=== PATIENT | female | born 1950 | race Two or more races ===

== ENCOUNTER 2017-10-27 11:42 | Emergency (ER) | payer OTHER, MEDICAID ==
[~2017-10-27] VITALS: Ht 149.9 cm; Wt 63.5 kg
[2017-10-27 19:43] VITALS: BP 181/56
[2017-10-27] MEDS ORDERED: TETANUS-DIPTH-ACEL PERTUSSIS 0.5ML SYRG IM ONE (20:00)
== END 2017-10-27 21:02 | disposition home or self-care (01) ==
LOC: ER 11:42
DX: S80.812A Abrasion, left lower leg, initial encounter (principal); L03.116 Cellulitis of left lower limb; W19.XXXA Unspecified fall, initial encounter; Y93.89 Activity, other specified; Y99.8 Other external cause status; Y92.89 Other specified places as the place of occurrence of the external cause
CPT/HCPCS: 90471; 90715

== ENCOUNTER 2022-02-13 05:31 | Emergency (ER) | payer MEDICAID, OTHER ==
[~2022-02-13] VITALS: Ht 152.4 cm; Wt 63.5 kg
[2022-02-13] MEDS ORDERED: ACCU-CHEK COMFORT CURVE STRIP VI ONE (05:45)
[2022-02-13 06:07] LABS: Basophils # (auto) 0 10 ^3/uL (0-0.2); Eosinophils # (auto) 0 10 ^3/uL (0-0.8); Lymphocytes # (auto) 0.9 10 ^3/uL (0.4-5.4); Monocytes # (auto) 0.6 10 ^3/uL (0-1.3); Neutrophils # (auto) 10.1 10 ^3/uL (1.6-8.6); Nucleated Red Blood Cells % 0.1 %; White Blood Cell 11.6 10^3/uL (4.4-10.8)
[2022-02-13 06:12] LABS: Basophils % (auto) 0.2 % (0.0-2.0); Eosinophils % (auto) 0.3 % (0.0-7.0); Hematocrit 31.3 % (36.0-46.0); Hemoglobin 10.6 g/dL (12.2-16.2); Lymphocytes % (auto) 7.4 % (10.0-50.0); Mean Corpuscular Hemoglobin 27.5 pg (28.0-32.0); Mean Corpuscular Hgb Conc. 33.9 g/dL (32.0-36.0); Mean Corpuscular Volume 81.2 fL (80.0-100.0); Monocytes % (auto) 4.8 % (0.0-12.0); Neutrophils % (auto) 87.3 % (37.0-80.0); Red Blood Cells 3.85 10^6/uL (4.0-5.20); Red Cell Distribution Width 13.7 % (11.8-14.3)
[2022-02-13 06:25] LABS: Albumin 2.7 g/dL (3.4-5.0); BUN/Creatinine Ratio 15.2; Calcium 8.3 mg/dL (8.5-10.1); Potassium 4.6 mmol/L (3.5-5.1)
[2022-02-13 06:27] LABS: Bilirubin, Total 0.5 mg/dL (0.2-1.0); Total Protein 6.5 g/dL (6.4-8.2)
[2022-02-13] MEDS ORDERED: InsuLIN REG 1unit/0.01ml Soln (100units/ml) IV ONE ×2 (07:00→09:45)
[2022-02-13] MEDS ORDERED: cefTRIAXone 1GM/50ML D5W 50 ML IV ONE ×2 (07:00→08:45)
[2022-02-13 08:38] LABS: Urine Bacteria FEW /hpf (None Seen); Urine Blood 1+ /uL (Negative); Urine Specific Gravity 1.021 (1.001-1.035); Urine WBC 88 /hpf (0 - 5)
[2022-02-13 09:32] LABS: Alcohol, Urine < 3.0 mg/dL (0-10); Amphetamine Screen, Urine NEGATIVE (NEGATIVE); Barbiturate Scree,Urine NEGATIVE (NEGATIVE); Benzodiazephine Screen, Urine NEGATIVE (NEGATIVE); Cannabinoid Screen, Urine NEGATIVE (NEGATIVE); Cocaine Screen, Urine NEGATIVE (NEGATIVE); Opiate Scree,Urine NEGATIVE (NEGATIVE); Phencyclidine Screen, Urine NEGATIVE (NEGATIVE)
[2022-02-13] MEDS ORDERED: CEPH-509 PO (09:43)
[2022-02-13] MEDS ORDERED: hydrALAZINE HCL 20 MG/ML VL IV ONE (09:45)
[2022-02-13 11:13] VITALS: BP 176/76
== END 2022-02-13 11:55 | disposition home or self-care (01) ==
LOC: ER 05:31
DX: N39.0 Urinary tract infection, site not specified (principal); I10 Essential (primary) hypertension; E11.65 Type 2 diabetes mellitus with hyperglycemia; Z20.822 Contact with and (suspected) exposure to COVID-19
CPT/HCPCS: 36415; 71045; 80053; 80307; 81001; 82962; 83605; 83880; 84484; 85025; 87040; 87426; 87804; 96365; 96375; 99285; J0360; J0696; J1815; 87077; 87186; 93005

== ENCOUNTER 2022-03-15 14:26 | Emergency (ER) | payer OTHER, MEDICAID ==
[~2022-03-15] VITALS: Ht 149.9 cm; Wt 58.5 kg
[~2022-03-15 14:26] MED LIST: CEPH-509 PO
[2022-03-15] MEDS ORDERED: ACETAMINOPHEN 325 MG TAB PO ONE (14:45)
[2022-03-15 15:43] LABS: Basophils # (auto) 0.1 10 ^3/uL (0-0.2); Basophils % (auto) 0.5 % (0.0-2.0); Eosinophils # (auto) 0 10 ^3/uL (0-0.8); Hematocrit 31.6 % (36.0-46.0); Hemoglobin 10.4 g/dL (12.2-16.2); Lymphocytes # (auto) 1.9 10 ^3/uL (0.4-5.4); Lymphocytes % (auto) 9.7 % (10.0-50.0); Mean Corpuscular Hemoglobin 26.4 pg (28.0-32.0); Mean Corpuscular Hgb Conc. 32.9 g/dL (32.0-36.0); Mean Corpuscular Volume 80.1 fL (80.0-100.0); Monocytes # (auto) 1.1 10 ^3/uL (0-1.3); Monocytes % (auto) 5.4 % (0.0-12.0); Neutrophils # (auto) 16.7 10 ^3/uL (1.6-8.6); Neutrophils % (auto) 84.4 % (37.0-80.0); Red Blood Cells 3.94 10^6/uL (4.0-5.20); Red Cell Distribution Width 15.5 % (11.8-14.3); White Blood Cell 19.8 10^3/uL (4.4-10.8)
[2022-03-15 16:07] LABS: Albumin 2.7 g/dL (3.4-5.0); BUN/Creatinine Ratio 14.6; Calcium 8.4 mg/dL (8.5-10.1); Potassium 4.6 mmol/L (3.5-5.1)
[2022-03-15 16:10] LABS: Bilirubin, Total 0.6 mg/dL (0.2-1.0); Total Protein 7.8 g/dL (6.4-8.2)
[2022-03-15] MEDS ORDERED: SODIUM CHLORIDE 0.9% 500 ML IV ONE (20:30)
[2022-03-15] MEDS ORDERED: PIPERACILLIN-TAZOB 3.375GM 100 ML IV ONE (20:30)
[2022-03-15] MEDS ORDERED: VANCOMYCIN 1GM/250ML 250 ML IV ONE (20:30)
[2022-03-15 23:52] LABS: Urine Bacteria NONE SEEN /hpf (None Seen); Urine Blood TRACE /uL (Negative); Urine Mucus FEW (None Seen); Urine Specific Gravity 1.027 (1.001-1.035); Urine WBC 47 /hpf (0 - 5); Urine WBC Clumps PRESENT /hpf (None Seen)
[2022-03-16 00:05] LABS: Lactic Acid w/Reflex 3.4 mmol/L (0.4-2.0)
[2022-03-16] MEDS ORDERED: levoFLOXacin 250 MG TAB PO ONE (06:15)
[2022-03-16 06:35] VITALS: BP 133/73
== END 2022-03-16 06:55 | disposition home or self-care (01) ==
LOC: ER 14:26
DX: A41.9 Sepsis, unspecified organism (principal); R91.8 Other nonspecific abnormal finding of lung field; E11.9 Type 2 diabetes mellitus without complications; I10 Essential (primary) hypertension; Z20.822 Contact with and (suspected) exposure to COVID-19
CPT/HCPCS: 36415; 71045; 71250; 74176; 80053; 81001; 82962; 83605; 84484; 85025; 87040; 87077; 87186; 87426; 93005; 96361; 96365; 96368; 99291; J2543; J3370; J7040

== ENCOUNTER 2022-04-24 07:29 | Inpatient (IN) | payer OTHER, MEDICAID ==
[~2022-04-24] VITALS: Ht 144.8 cm; Wt 57.9 kg
[2022-04-24] MEDS ORDERED: FUROSEMIDE 40 MG/4 ML VIAL IV ONE (08:00)
[2022-04-24] MEDS ORDERED: NITROGLYCERIN 0.4 MG SL TAB SL ONE ×2 (08:00→08:15)
[2022-04-24 08:06] VITALS: BP 243/113
[2022-04-24 08:15] LABS: Eosinophils # (auto) 0.2 10 ^3/uL (0-0.8); Hematocrit 33.4 % (36.0-46.0); Mean Corpuscular Volume 79.2 fL (80.0-100.0); Monocytes # (auto) 0.8 10 ^3/uL (0-1.3); Red Blood Cells 4.22 10^6/uL (4.0-5.20)
[2022-04-24 08:20] LABS: Basophils # (auto) 0.2 10 ^3/uL (0-0.2); Basophils % (auto) 0.9 % (0.0-2.0); Lymphocytes % (auto) 17.6 % (10.0-50.0); Mean Corpuscular Hemoglobin 26.1 pg (28.0-32.0); Mean Corpuscular Hgb Conc. 32.9 g/dL (32.0-36.0); Monocytes % (auto) 4.4 % (0.0-12.0); Neutrophils # (auto) 13.1 10 ^3/uL (1.6-8.6); Neutrophils % (auto) 76.1 % (37.0-80.0); Red Cell Distribution Width 16.7 % (11.8-14.3); White Blood Cell 17.2 10^3/uL (4.4-10.8)
[2022-04-24 08:35] LABS: Albumin 3.1 g/dL (3.4-5.0); Calcium 8.6 mg/dL (8.5-10.1); Magnesium 2.2 mg/dL (1.6-2.6); Potassium 4.7 mmol/L (3.5-5.1)
[2022-04-24 08:44] LABS: BUN/Creatinine Ratio 31.3; Bilirubin, Total 0.3 mg/dL (0.2-1.0); CRP High Sensitivity 7.09 mg/dL (< 0.3); Total Protein 8.6 g/dL (6.4-8.2)
[2022-04-24 08:59] LABS: Urine Bacteria FEW /hpf (None Seen); Urine Blood TRACE /uL (Negative); Urine Hyaline Cast FEW /lpf (0 - 2); Urine Mucus FEW (None Seen); Urine Specific Gravity 1.011 (1.001-1.035); Urine WBC 29 /hpf (0 - 5)
[2022-04-24] MEDS ORDERED: cefTRIAXone 1GM/50ML D5W 50 ML IV ONE (09:15)
[2022-04-24 10:06] VITALS: BP 168/62
[2022-04-24 10:42] LABS: INR 1.08 (0.9-1.15); Partial Thromboplastin Time 35.3 sec (23.6-33.0)
[2022-04-24] MEDS ORDERED: NITROGLYCERIN 0.4 MG SL TAB SL PRN (11:00)
[2022-04-24] MEDS ORDERED: MORPHINE SULFATE INJ 2 MG/ml SYRG IV PRN (11:00)
[2022-04-24] MEDS ORDERED: guaiFENesin-DM 100/10mg/5ml SYR PO PRN (11:00)
[2022-04-24] MEDS ORDERED: LISI20TA28 PO (11:07)
[2022-04-24] MEDS ORDERED: DEXTROSE (50%) 50ML SYRG IV PRN (11:15)
[2022-04-24] MEDS ORDERED: hydrALAZINE HCL 20 MG/ML VL IV PRN (11:15)
[2022-04-24] MEDS: ACCU-CHEK COMFORT CURVE STRIP VI SCH ×3 (11:18→23:05)
[2022-04-24] MEDS: InsuLIN REG 1unit/0.01ml Soln (100units/ml) SC SCH ×3 (11:18→23:05)
[2022-04-24 13:43] VITALS: BP 168/71
[2022-04-24] MEDS: ALBUTEROL SULF 2.5 MG/0.5ML(0.5%) NEB SOLN NEB SCH ×4 (13:51→23:11)
[2022-04-24] MEDS: IPRATROPIUM BROM 0.5 MG/2.5ML INH SOL NEB PRN ×3 (13:55→23:11)
[2022-04-25] MEDS ORDERED: CHOL100055 PO (01:19)
[2022-04-25] MEDS ORDERED: METF-372 PO (01:19)
[2022-04-25] MEDS ORDERED: INSU1INJ19 SC (01:19)
[2022-04-25] MEDS: ALBUTEROL SULF 2.5 MG/0.5ML(0.5%) NEB SOLN NEB SCH ×6 (02:28→22:49)
[2022-04-25] MEDS: IPRATROPIUM BROM 0.5 MG/2.5ML INH SOL NEB PRN ×6 (02:28→22:49)
[2022-04-25 05:00] VITALS: BP 122/50
[2022-04-25 05:59] LABS: Basophils # (auto) 0.1 10 ^3/uL (0-0.2); Basophils % (auto) 0.4 % (0.0-2.0); Eosinophils # (auto) 0 10 ^3/uL (0-0.8); Eosinophils % (auto) 0.2 % (0.0-7.0); Hemoglobin 9.3 g/dL (12.2-16.2); Lymphocytes # (auto) 2.5 10 ^3/uL (0.4-5.4); Monocytes # (auto) 0.8 10 ^3/uL (0-1.3); White Blood Cell 13.3 10^3/uL (4.4-10.8)
[2022-04-25 06:01] LABS: Hematocrit 27.9 % (36.0-46.0); Mean Corpuscular Hemoglobin 25.8 pg (28.0-32.0); Mean Corpuscular Hgb Conc. 33.4 g/dL (32.0-36.0); Mean Corpuscular Volume 77.2 fL (80.0-100.0); Monocytes % (auto) 5.6 % (0.0-12.0); Neutrophils % (auto) 74.8 % (37.0-80.0); Red Blood Cells 3.62 10^6/uL (4.0-5.20); Red Cell Distribution Width 16.4 % (11.8-14.3)
[2022-04-25] MEDS: InsuLIN REG 1unit/0.01ml Soln (100units/ml) SC SCH ×4 (06:02→21:50)
[2022-04-25] MEDS: ACCU-CHEK COMFORT CURVE STRIP VI SCH ×4 (06:02→21:48)
[2022-04-25 06:19] LABS: Albumin 2.6 g/dL (3.4-5.0); Calcium 8.2 mg/dL (8.5-10.1)
[2022-04-25 06:23] LABS: BUN/Creatinine Ratio 29.6; Bilirubin, Total 0.4 mg/dL (0.2-1.0); Total Protein 7.1 g/dL (6.4-8.2)
[2022-04-25] MEDS: cefTRIAXone 1GM/50ML D5W 50 ML IV SCH (08:08)
[2022-04-25 08:10] VITALS: BP 133/52
[2022-04-25 09:00] VITALS: BP 133/52
[2022-04-25] MEDS: AZITHROMYCIN 500MG/ 250ML 250 ML IV SCH (09:56)
[2022-04-25] MEDS: ASPirin 81 mg TAB PO SCH (09:56)
[2022-04-25] MEDS: ENOXAPARIN SOD 40 MG/0.4 ML SYRINGE SC SCH (09:56)
[2022-04-25 13:00] VITALS: BP 120/51
[2022-04-25 17:00] VITALS: BP 137/45
[2022-04-25 22:00] VITALS: BP 100/75
[2022-04-25] MEDS ORDERED: ATORVASTATIN 20 MG TAB PO SCH (22:00)
[2022-04-26] MEDS: ALBUTEROL SULF 2.5 MG/0.5ML(0.5%) NEB SOLN NEB SCH ×4 (02:55→13:54)
[2022-04-26] MEDS: IPRATROPIUM BROM 0.5 MG/2.5ML INH SOL NEB PRN ×4 (02:55→13:54)
[2022-04-26 05:00] VITALS: BP 100/55
[2022-04-26 05:39] LABS: Basophils # (auto) 0 10 ^3/uL (0-0.2); Basophils % (auto) 0.4 % (0.0-2.0); Eosinophils # (auto) 0.1 10 ^3/uL (0-0.8); Eosinophils % (auto) 1.5 % (0.0-7.0); Hematocrit 26.2 % (36.0-46.0); Hemoglobin 8.9 g/dL (12.2-16.2); Lymphocytes # (auto) 2.6 10 ^3/uL (0.4-5.4); Lymphocytes % (auto) 29.8 % (10.0-50.0); Mean Corpuscular Hemoglobin 26.7 pg (28.0-32.0); Mean Corpuscular Hgb Conc. 34.1 g/dL (32.0-36.0); Mean Corpuscular Volume 78.3 fL (80.0-100.0); Monocytes # (auto) 0.7 10 ^3/uL (0-1.3); Monocytes % (auto) 8.3 % (0.0-12.0); Neutrophils # (auto) 5.2 10 ^3/uL (1.6-8.6); Nucleated Red Blood Cells % 0.1 %; Red Blood Cells 3.34 10^6/uL (4.0-5.20); Red Cell Distribution Width 16.2 % (11.8-14.3); White Blood Cell 8.7 10^3/uL (4.4-10.8)
[2022-04-26 06:01] LABS: Albumin 2.4 g/dL (3.4-5.0); Calcium 8.1 mg/dL (8.5-10.1); Potassium 4.4 mmol/L (3.5-5.1)
[2022-04-26 06:07] LABS: BUN/Creatinine Ratio 28.1; Bilirubin, Total 0.3 mg/dL (0.2-1.0); Total Protein 6.9 g/dL (6.4-8.2)
[2022-04-26] MEDS ORDERED: LEVO500T31 PO (06:32)
[2022-04-26] MEDS: InsuLIN REG 1unit/0.01ml Soln (100units/ml) SC SCH ×3 (07:00→17:00)
[2022-04-26] MEDS: ACCU-CHEK COMFORT CURVE STRIP VI SCH ×3 (07:00→16:52)
[2022-04-26] MEDS ORDERED: ADENOSINE 49 MG in GIVE UN-DILUTED 0 ML IV ONE (07:45)
[2022-04-26] MEDS: cefTRIAXone 1GM/50ML D5W 50 ML IV SCH (08:22)
[2022-04-26 08:25] VITALS: BP 155/60
[2022-04-26 09:00] VITALS: BP 155/60
[2022-04-26] MEDS: ENOXAPARIN SOD 40 MG/0.4 ML SYRINGE SC SCH (10:23)
[2022-04-26] MEDS: ASPirin 81 mg TAB PO SCH (10:23)
[2022-04-26] MEDS: AZITHROMYCIN 500MG/ 250ML 250 ML IV SCH (10:24)
[2022-04-26 10:46] VITALS: BP 155/60
[2022-04-26 11:44] VITALS: BP 127/50
[2022-04-26] MEDS ORDERED: FURO20TA3 PO (14:31)
[2022-04-26] MEDS ORDERED: MET25T PO (14:31)
[2022-04-26] MEDS ORDERED: FUROSEMIDE 20 MG/2 ML VIAL IV SCH (18:00)
[2022-04-26] MEDS ORDERED: METOPROLOL TARTRATE 25 MG TAB PO SCH (22:00)
[2022-04-27] MEDS ORDERED: AZITHROMYCIN 250 MG TAB PO SCH (10:00)
== END 2022-04-26 17:15 | disposition home health service (06) | DRG 189 ==
LOC: ER 07:29 → TELE 10:53 → TELE-EAST 22:50 → OBSVTOIN 04-26 10:55
PROVIDERS: ADMIT Hospitalist; ATTEND Hospitalist
PROC: 5A09357 Assistance with Respiratory Ventilation, Less than 24 Consecutive Hours, Continuous Positive Airway Pressure (ICD-10-PCS; principal; 2022-04-24)
DX: J96.01 Acute respiratory failure with hypoxia (principal); J18.9 Pneumonia, unspecified organism; I50.43 Acute on chronic combined systolic (congestive) and diastolic (congestive) heart failure; N39.0 Urinary tract infection, site not specified; J98.11 Atelectasis; I11.0 Hypertensive heart disease with heart failure; Z20.822 Contact with and (suspected) exposure to COVID-19; E11.9 Type 2 diabetes mellitus without complications; Z82.49 Family history of ischemic heart disease and other diseases of the circulatory system; Z83.3 Family history of diabetes mellitus; D72.829 Elevated white blood cell count, unspecified; I16.0 Hypertensive urgency; D64.9 Anemia, unspecified; Z79.4 Long term (current) use of insulin
CPT/HCPCS: 36415; 36600; 71045; 78452; 80053; 81001; 82728; 82805; 82962; 83605; 83735; 83880; 84484; 85025; 85379; 85610; 85730; 86141; 87040; 87278; 93005; 93017; 93306; 93886; 94640; 94660; 96365; 96375; 97116; 97163; 97530; 99291; G0378; J0153; J0696; J1815

== ENCOUNTER 2023-01-11 12:52 | Emergency (ER) | payer OTHER ==
[~2023-01-11] VITALS: Ht 152.4 cm; Wt 60.0 kg
[~2023-01-11 12:52] MED LIST changes: +CHOL100055 PO; +FURO1TAB31 PO; +FURO20TA3 PO; +INSU1INJ19 SC; +LEVO500T31 PO; +LISI20TA28 PO; +MET25T PO; +METF-372 PO
[2023-01-11 13:55] VITALS: BP 159/79
[2023-01-11 15:08] LABS: Urine Bacteria NONE SEEN /hpf (None Seen); Urine Blood TRACE /uL (Negative); Urine Specific Gravity 1.016 (1.001-1.035); Urine WBC 35 /hpf (0 - 5)
[2023-01-11 15:20] LABS: Basophils # (auto) 0.1 10 ^3/uL (0-0.2); Eosinophils # (auto) 0.1 10 ^3/uL (0-0.8); Hemoglobin 11.5 g/dL (12.2-16.2); Lymphocytes # (auto) 0.9 10 ^3/uL (0.4-5.4); Monocytes # (auto) 0.5 10 ^3/uL (0-1.3); Nucleated Red Blood Cells % 0.1 %
[2023-01-11 15:22] LABS: Basophils % (auto) 0.9 % (0.0-2.0); Eosinophils % (auto) 1.9 % (0.0-7.0); Hematocrit 35.6 % (36.0-46.0); Lymphocytes % (auto) 13.5 % (10.0-50.0); Mean Corpuscular Hemoglobin 25.3 pg (28.0-32.0); Mean Corpuscular Hgb Conc. 32.4 g/dL (32.0-36.0); Mean Corpuscular Volume 78.1 fL (80.0-100.0); Monocytes % (auto) 7.6 % (0.0-12.0); Neutrophils % (auto) 76.1 % (37.0-80.0); Red Blood Cells 4.55 10^6/uL (4.0-5.20); Red Cell Distribution Width 17.4 % (11.8-14.3); White Blood Cell 6.6 10^3/uL (4.4-10.8)
[2023-01-11 15:50] LABS: Albumin 3.3 g/dL (3.4-5.0); BUN/Creatinine Ratio 21.9 (10.0-20.0); Calcium 8.7 mg/dL (8.5-10.1); Potassium 4.4 mmol/L (3.5-5.1)
[2023-01-11 15:53] LABS: Bilirubin, Total 0.8 mg/dL (0.2-1.0); Total Protein 7.4 g/dL (6.4-8.2)
[2023-01-11] MEDS ORDERED: APIX5TAB PO (18:53)
== END 2023-01-11 20:31 | disposition home or self-care (01) ==
LOC: ER 12:52
DX: R60.0 Localized edema (principal); I82.90 Acute embolism and thrombosis of unspecified vein; E11.9 Type 2 diabetes mellitus without complications; I10 Essential (primary) hypertension
CPT/HCPCS: 36415; 80053; 81001; 85025

== ENCOUNTER 2023-02-04 14:31 | Inpatient (IN) | payer OTHER ==
[~2023-02-04] VITALS: Ht 149.9 cm; Wt 62.3 kg
[~2023-02-04 14:31] MED LIST changes: +APIX5TAB PO
[2023-02-04 15:28] LABS: Basophils # (auto) 0.1 10 ^3/uL (0-0.2); Eosinophils # (auto) 0.1 10 ^3/uL (0-0.8); Hemoglobin 12.3 g/dL (12.2-16.2); Lymphocytes # (auto) 0.6 10 ^3/uL (0.4-5.4); Monocytes # (auto) 0.1 10 ^3/uL (0-1.3); Neutrophils # (auto) 8.3 10 ^3/uL (1.6-8.6); Red Blood Cells 4.81 10^6/uL (4.0-5.20)
[2023-02-04 15:30] LABS: Eosinophils % (auto) 0.8 % (0.0-7.0); Hematocrit 38.2 % (36.0-46.0); Lymphocytes % (auto) 6.4 % (10.0-50.0); Mean Corpuscular Hemoglobin 25.5 pg (28.0-32.0); Mean Corpuscular Hgb Conc. 32.1 g/dL (32.0-36.0); Mean Corpuscular Volume 79.3 fL (80.0-100.0); Monocytes % (auto) 1.1 % (0.0-12.0); Neutrophils % (auto) 90.7 % (37.0-80.0); Nucleated Red Blood Cells % 0.1 %; Red Cell Distribution Width 17.3 % (11.8-14.3); White Blood Cell 9.2 10^3/uL (4.4-10.8)
[2023-02-04 15:53] LABS: Albumin 3.2 g/dL (3.4-5.0); BUN/Creatinine Ratio 22.5 (10.0-20.0); Calcium 8.4 mg/dL (8.5-10.1); Potassium 4.3 mmol/L (3.5-5.1)
[2023-02-04 15:56] LABS: Total Protein 6.9 g/dL (6.4-8.2)
[2023-02-04] MEDS ORDERED: FUROSEMIDE 40 MG/4 ML VIAL IV ONE (16:45)
[2023-02-04] MEDS ORDERED: ENOXAPARIN SOD 60 MG/0.6 ML SYRINGE SC ONE (16:45)
[2023-02-04] MEDS ORDERED: MORPHINE SULFATE INJ 2 MG/ml SYRG IV ONE (17:45)
[2023-02-04] MEDS ORDERED: ONDANSETRON HCL 4 MG/2 ML VIAL IV ONE (17:45)
[2023-02-04] MEDS ORDERED: IOHEXOL 350 MG/ML 100ML IJ ONE (18:15)
[2023-02-04] MEDS ORDERED: LORazepam 0.5 MG TAB PO ONE (19:45)
[2023-02-04 19:50] LABS: Urine Bacteria NONE SEEN /hpf (None Seen); Urine Blood TRACE /uL (Negative); Urine Hyaline Cast FEW /lpf (0 - 2); Urine Mucus FEW (None Seen); Urine Specific Gravity 1.017 (1.001-1.035); Urine WBC 7 /hpf (0 - 5)
[2023-02-04] MEDS ORDERED: MORPHINE SULFATE INJ 2 MG/ml SYRG IV PRN ×2 (20:30→22:00)
[2023-02-04] MEDS ORDERED: NITROGLYCERIN 0.4 MG SL TAB SL PRN (20:30)
[2023-02-04 20:34] VITALS: BP 148/90
[2023-02-04] MEDS ORDERED: DEXTROSE (50%) 50ML SYRG IV PRN (22:30)
[2023-02-04] MEDS: ASPirin-EC 325mg tab PO SCH (22:44)
[2023-02-04] MEDS: FUROSEMIDE 40 MG/4 ML VIAL IV SCH (22:44)
[2023-02-05] VITALS (26 sets, daily range): BP systolic 92–140; BP diastolic 23–64
[2023-02-05] MEDS: IPRATROPIUM BROM 0.5 MG/2.5ML INH SOL NEB SCH ×4 (00:38→19:32)
[2023-02-05] MEDS: ALBUTEROL SULF 2.5 MG/0.5ML(0.5%) NEB SOLN NEB SCH ×4 (00:38→19:32)
[2023-02-05] MEDS ORDERED: methylPREDNISolone SOD SUCC 125 MG/2 ML VL IV ONE (04:15)
[2023-02-05] MEDS: NOREPINEPHRINE 8 MG/250ML KIT 250 ML IV SCH ×2 (04:50→22:49)
[2023-02-05 05:58] LABS: Basophils # (auto) 0 10 ^3/uL (0-0.2); Basophils % (auto) 0.2 % (0.0-2.0); Eosinophils # (auto) 0 10 ^3/uL (0-0.8); Eosinophils % (auto) 0.1 % (0.0-7.0); Hematocrit 33.9 % (36.0-46.0); Lymphocytes # (auto) 0.4 10 ^3/uL (0.4-5.4); Lymphocytes % (auto) 2.7 % (10.0-50.0); Mean Corpuscular Hemoglobin 25.9 pg (28.0-32.0); Mean Corpuscular Hgb Conc. 32.6 g/dL (32.0-36.0); Mean Corpuscular Volume 79.4 fL (80.0-100.0); Monocytes # (auto) 0.2 10 ^3/uL (0-1.3); Monocytes % (auto) 1.6 % (0.0-12.0); Neutrophils # (auto) 14.2 10 ^3/uL (1.6-8.6); Neutrophils % (auto) 95.4 % (37.0-80.0); Red Blood Cells 4.26 10^6/uL (4.0-5.20); Red Cell Distribution Width 17.7 % (11.8-14.3); White Blood Cell 14.9 10^3/uL (4.4-10.8)
[2023-02-05 06:08] LABS: INR 1.62 (0.9-1.15)
[2023-02-05 06:20] LABS: Albumin 2.6 g/dL (3.4-5.0); Calcium 8.1 mg/dL (8.5-10.1)
[2023-02-05 06:45] LABS: Bilirubin, Total 1.5 mg/dL (0.2-1.0); Total Protein 6.1 g/dL (6.4-8.2)
[2023-02-05] MEDS: FUROSEMIDE 40 MG/4 ML VIAL IV SCH ×3 (06:50→22:50)
[2023-02-05] MEDS: ASPirin-EC 325mg tab PO SCH ×3 (06:50→22:00)
[2023-02-05] MEDS: ACCU-CHEK COMFORT CURVE STRIP VI SCH ×4 (07:00→23:14)
[2023-02-05] MEDS: InsuLIN REG 1unit/0.01ml Soln (100units/ml) SC SCH ×4 (07:00→22:00)
[2023-02-05] MEDS: ALBUMIN 25% 100 ML IV SCH ×3 (08:57→22:56)
[2023-02-05] MEDS: LORazepam 0.5 MG TAB PO PRN (15:43)
[2023-02-05] MEDS ORDERED: ETOMIDATE (2MG/ML) 20ML VIAL IV ONE (16:30)
[2023-02-05] MEDS ORDERED: SUCCINYLCHOLINE CHLORIDE 20 MG/ML 10ML VIAL IV ONE ×2 (16:30→16:36)
[2023-02-05] MEDS ORDERED: MIDAZOLAM DRIP 50 mg/50mL 50 ML IV ONE (16:36)
[2023-02-05] MEDS: MIDAZOLAM DRIP 50 mg/50mL 50 ML IV SCH ×2 (17:18→22:21)
[2023-02-05] MEDS ORDERED: fentaNYL Drip 2500mCg/250mlNS 250 ML IV ONE (18:36)
[2023-02-05] MEDS: fentaNYL Drip 2500mCg/250mlNS 250 ML IV SCH (18:45)
[2023-02-05] MEDS ORDERED: PROPOFOL 100 ML IV ONE (18:55)
[2023-02-05] MEDS: PROPOFOL 100 ML IV SCH ×2 (18:55→22:50)
[2023-02-05] MEDS ORDERED: PHENYLEPHRINE IV 250 ML IV ONE (18:58)
[2023-02-05] MEDS ORDERED: NOREPINEPHRINE 8 MG/250ML KIT 250 ML IV ONE (18:58)
[2023-02-05] MEDS ORDERED: ROCURONIUM 10MG/ML 10ML VIAL IV ONE ×2 (18:59→19:00)
[2023-02-05] MEDS: PHENYLEPHRINE IV 250 ML IV SCH (19:15)
[2023-02-05] MEDS ORDERED: SODIUM BICARBONATE 8.4 % INJ 50ML VIAL IV ONE ×2 (19:55→20:00)
[2023-02-06] VITALS (104 sets, daily range): BP systolic 65–160; BP diastolic 28–74
[2023-02-06] MEDS: ALBUTEROL SULF 2.5 MG/0.5ML(0.5%) NEB SOLN NEB SCH ×4 (00:22→18:13)
[2023-02-06] MEDS: IPRATROPIUM BROM 0.5 MG/2.5ML INH SOL NEB SCH ×4 (00:22→18:13)
[2023-02-06] MEDS: MIDAZOLAM DRIP 50 mg/50mL 50 ML IV SCH ×6 (02:19→23:43)
[2023-02-06 02:56] LABS: Hematocrit 35.6 % (36.0-46.0); Hemoglobin 11.5 g/dL (12.2-16.2); Mean Corpuscular Hemoglobin 25.5 pg (28.0-32.0); Mean Corpuscular Hgb Conc. 32.2 g/dL (32.0-36.0); Mean Corpuscular Volume 79.3 fL (80.0-100.0); Red Blood Cells 4.49 10^6/uL (4.0-5.20); Red Cell Distribution Width 18.2 % (11.8-14.3)
[2023-02-06 03:15] LABS: BUN/Creatinine Ratio 16.5 (10.0-20.0); Calcium 7.6 mg/dL (8.5-10.1); Potassium 4.5 mmol/L (3.5-5.1)
[2023-02-06 03:16] LABS: Basophils % (manual) 0 (0.0-2.0); Blast Cells 0; Eosinophils % (manual) 0 (0-7); Promyelocytes % 0; Reactive Lymphocytes 0
[2023-02-06] MEDS: PHENYLEPHRINE IV 250 ML IV SCH ×3 (03:35→20:15)
[2023-02-06] MEDS: PROPOFOL 100 ML IV SCH ×4 (04:11→22:33)
[2023-02-06 04:50] LABS: Lactic Acid w/Reflex 7.3 mmol/L (0.4-2.0)
[2023-02-06 05:17] LABS: Band Neutrophils % (manual) 37; Lymphocytes % (manual) 6 (10.0-50.0); Metamyelocytes % 2; Monocytes % (manual) 3 (0-12); Myelocytes % 6
[2023-02-06] MEDS: NOREPINEPHRINE 8 MG/250ML KIT 250 ML IV SCH ×3 (05:25→22:57)
[2023-02-06] MEDS: fentaNYL Drip 2500mCg/250mlNS 250 ML IV SCH ×2 (05:31→18:25)
[2023-02-06] MEDS: FUROSEMIDE 40 MG/4 ML VIAL IV SCH (05:32)
[2023-02-06] MEDS: ASPirin-EC 325mg tab PO SCH ×2 (06:00→14:00)
[2023-02-06] MEDS: ACCU-CHEK COMFORT CURVE STRIP VI SCH ×4 (06:54→21:52)
[2023-02-06] MEDS: InsuLIN REG 1unit/0.01ml Soln (100units/ml) SC SCH ×4 (06:54→21:50)
[2023-02-06] MEDS: DOBUTamine 1000MCG/ML 250 ML IV SCH (07:57)
[2023-02-06] MEDS ORDERED: SODIUM BICARBONATE 8.4 % INJ 50ML VIAL IV ONE ×3 (08:45→12:15)
[2023-02-06] MEDS ORDERED: VANCOMYCIN 1GM/250ML 250 ML IV ONE (09:45)
[2023-02-06] MEDS ORDERED: SODIUM BICARBONATE 50ML VIAL 100 ML in D5W 5% 1,000 ML IV ONE (09:45)
[2023-02-06] MEDS ORDERED: LINEZOLID 600MG/300ML 300 ML IV SCH (10:00)
[2023-02-06] MEDS ORDERED: FUROSEMIDE 40 MG/4 ML VIAL IV SCH ×2 (10:00→18:00)
[2023-02-06 10:06] LABS: Urine Bacteria FEW /hpf (None Seen); Urine Blood 2+ /uL (Negative); Urine Hyaline Cast FEW /lpf (0 - 2); Urine Specific Gravity 1.025 (1.001-1.035); Urine WBC 52 /hpf (0 - 5)
[2023-02-06] MEDS: PANTOPRAZOLE 40 MG/10 ML VIAL INJ IV SCH (10:40)
[2023-02-06] MEDS: PIPERACILLIN-TAZOB 2.25GM 50 ML IV SCH ×3 (11:23→21:45)
[2023-02-06] MEDS: FUROSEMIDE INJECTION 100 MG in SODIUM CHL 0.9% 100 ML IV SCH ×2 (13:19→21:54)
[2023-02-06] MEDS ORDERED: AMIODARONE HCL 150 MG in D5W 5% 100 ML IV ONE (15:15)
[2023-02-06] MEDS ORDERED: AMIODARONE 450mg/250ml AE 250 ML IV SCH ×2 (15:30→21:30)
[2023-02-06 18:12] LABS: Protein, Urine 433.5 mg/dL (0.0-11.9)
[2023-02-06] MEDS ORDERED: CATHFLO ACTIVASE (ALTEPLASE) 2 MG VIAL IV ONE (19:00)
[2023-02-06] MEDS: CEFTAROLINE 300 MG in SODIUM CHL 0.9% 250 ML IV SCH (19:00)
[2023-02-06] MEDS: SODIUM BICARBONATE 50ML VIAL 100 ML in D5W 5% 1,000 ML IV SCH (21:44)
[2023-02-06 21:47] LABS: Hematocrit 38.2 % (36.0-46.0); Hemoglobin 11.9 g/dL (12.2-16.2); Mean Corpuscular Hemoglobin 25.2 pg (28.0-32.0); Red Cell Distribution Width 18.5 % (11.8-14.3)
[2023-02-06 21:49] LABS: Mean Corpuscular Hgb Conc. 31.1 g/dL (32.0-36.0); Red Blood Cells 4.71 10^6/uL (4.0-5.20)
[2023-02-06 21:57] LABS: White Blood Cell 36.3 10^3/uL (4.4-10.8)
[2023-02-06 21:58] LABS: Basophils % (manual) 0 (0.0-2.0); Blast Cells 0; Eosinophils % (manual) 0 (0-7); Myelocytes % 0; Promyelocytes % 0; Reactive Lymphocytes 0
[2023-02-06] MEDS ORDERED: CLINDAMYCIN 900MG IV 50 ML IV SCH (22:00)
[2023-02-06 22:31] LABS: Band Neutrophils % (manual) 20; Lymphocytes % (manual) 2 (10.0-50.0); Metamyelocytes % 1; Monocytes % (manual) 4 (0-12)
[2023-02-07] VITALS (100 sets, daily range): BP systolic 81–151; BP diastolic 39–74
[2023-02-07 00:12] LABS: Albumin 2.7 g/dL (3.4-5.0); Calcium 6.4 mg/dL (8.5-10.1); Potassium 5.1 mmol/L (3.5-5.1)
[2023-02-07 00:14] LABS: BUN/Creatinine Ratio 16.8 (10.0-20.0)
[2023-02-07 00:16] LABS: Bilirubin, Total 4.3 mg/dL (0.2-1.0); Total Protein 6.3 g/dL (6.4-8.2)
[2023-02-07] MEDS: ALBUTEROL SULF 2.5 MG/0.5ML(0.5%) NEB SOLN NEB SCH ×4 (00:32→18:15)
[2023-02-07] MEDS: IPRATROPIUM BROM 0.5 MG/2.5ML INH SOL NEB SCH ×4 (00:32→18:15)
[2023-02-07] MEDS: CALCIUM GLUC 1,000mg/50ml-NS 50 ML IV SCH (01:50)
[2023-02-07] MEDS: PROPOFOL 100 ML IV SCH ×2 (03:33→07:29)
[2023-02-07] MEDS: MIDAZOLAM DRIP 50 mg/50mL 50 ML IV SCH ×5 (03:33→21:29)
[2023-02-07] MEDS: PIPERACILLIN-TAZOB 2.25GM 50 ML IV SCH ×4 (03:37→21:07)
[2023-02-07 04:22] LABS: Hematocrit 36.4 % (36.0-46.0); Hemoglobin 11.8 g/dL (12.2-16.2); Mean Corpuscular Hemoglobin 25.3 pg (28.0-32.0); Mean Corpuscular Hgb Conc. 32.4 g/dL (32.0-36.0); Red Blood Cells 4.66 10^6/uL (4.0-5.20); Red Cell Distribution Width 18.1 % (11.8-14.3); White Blood Cell 23.4 10^3/uL (4.4-10.8)
[2023-02-07 04:26] LABS: Basophils % (manual) 0 (0.0-2.0); Blast Cells 0; Promyelocytes % 0; Reactive Lymphocytes 0
[2023-02-07] MEDS: PHENYLEPHRINE IV 250 ML IV SCH ×3 (04:35→21:15)
[2023-02-07 05:03] LABS: Albumin 2.7 g/dL (3.4-5.0); Calcium 6.1 mg/dL (8.5-10.1); Potassium 4.8 mmol/L (3.5-5.1)
[2023-02-07 05:14] LABS: Bilirubin, Total 4.4 mg/dL (0.2-1.0); Total Protein 6.2 g/dL (6.4-8.2)
[2023-02-07] MEDS: fentaNYL Drip 2500mCg/250mlNS 250 ML IV SCH ×2 (06:19→18:04)
[2023-02-07] MEDS: ACCU-CHEK COMFORT CURVE STRIP VI SCH ×4 (06:21→22:00)
[2023-02-07] MEDS: InsuLIN REG 1unit/0.01ml Soln (100units/ml) SC SCH ×4 (06:21→22:00)
[2023-02-07] MEDS: DOBUTamine 1000MCG/ML 250 ML IV SCH (06:51)
[2023-02-07] MEDS: CEFTAROLINE 300 MG in SODIUM CHL 0.9% 250 ML IV SCH (06:52)
[2023-02-07 07:11] LABS: Band Neutrophils % (manual) 20; Eosinophils % (manual) 1 (0-7); Lymphocytes % (manual) 4 (10.0-50.0); Metamyelocytes % 5; Monocytes % (manual) 3 (0-12); Myelocytes % 3
[2023-02-07] MEDS: FUROSEMIDE INJECTION 100 MG in SODIUM CHL 0.9% 100 ML IV SCH ×2 (08:15→18:20)
[2023-02-07] MEDS: SODIUM BICARBONATE 50ML VIAL 100 ML in D5W 5% 1,000 ML IV SCH (09:18)
[2023-02-07] MEDS: PANTOPRAZOLE 40 MG/10 ML VIAL INJ IV SCH (09:28)
[2023-02-07] MEDS ORDERED: levoFLOXacin 750MG 150 ML IV ONE (10:00)
[2023-02-07] MEDS ORDERED: SODIUM BICARBONATE 50ML VIAL 150 ML in D5W 5% 1,000 ML IV ONE (11:00)
[2023-02-07] MEDS: NOREPINEPHRINE 8 MG/250ML KIT 250 ML IV SCH (12:16)
[2023-02-07 14:01] LABS: Hepatitis A Ab IgM Negative; Hepatitis B Core IgM Negative
[2023-02-07 14:02] LABS: Hepatitis C Antibody Negative (Negative)
[2023-02-07 17:11] LABS: Hemoglobin 10.9 g/dL (12.2-16.2); Mean Corpuscular Hemoglobin 25.4 pg (28.0-32.0); Mean Corpuscular Hgb Conc. 32.1 g/dL (32.0-36.0); Mean Corpuscular Volume 79.1 fL (80.0-100.0); Red Cell Distribution Width 18.6 % (11.8-14.3); White Blood Cell 14.2 10^3/uL (4.4-10.8)
[2023-02-07 17:15] LABS: Basophils % (manual) 0 (0.0-2.0); Blast Cells 0; Myelocytes % 0; Promyelocytes % 0; Reactive Lymphocytes 0
[2023-02-07 17:25] LABS: BUN/Creatinine Ratio 16.8 (10.0-20.0); Potassium 4.6 mmol/L (3.5-5.1)
[2023-02-07 18:33] LABS: Calcium 5.7 mg/dL (8.5-10.1)
[2023-02-07 18:37] LABS: INR 1.66 (0.9-1.15); Partial Thromboplastin Time 54.3 sec (24.6-33.4)
[2023-02-07 19:03] LABS: Band Neutrophils % (manual) 19; Eosinophils % (manual) 2 (0-7); Lymphocytes % (manual) 11 (10.0-50.0); Monocytes % (manual) 4 (0-12)
[2023-02-07 19:04] LABS: Metamyelocytes % 1
[2023-02-07] MEDS: VASOPRESSIN 20 UNITS in SODIUM CHL 0.9% 99 ML IV SCH (19:15)
[2023-02-07] MEDS: PHENYLEPHRINE INJ 80 MG in SODIUM CHL 0.9% 242 ML IV SCH (20:00)
[2023-02-07] MEDS: NOREPINEPHRINE BITARTRATE 32 MG in SODIUM CHL 0.9% 218 ML IV SCH (20:00)
[2023-02-08] VITALS (104 sets, daily range): BP systolic 90–164; BP diastolic 47–85
[2023-02-08] MEDS: ALBUTEROL SULF 2.5 MG/0.5ML(0.5%) NEB SOLN NEB SCH ×4 (00:10→18:05)
[2023-02-08] MEDS: IPRATROPIUM BROM 0.5 MG/2.5ML INH SOL NEB SCH ×4 (00:10→18:05)
[2023-02-08] MEDS ORDERED: CALCIUM GLUC 1,000mg/50ml-NS 50 ML IV ONE ×3 (01:17→12:45)
[2023-02-08] MEDS: CALCIUM GLUC 1,000mg/50ml-NS 50 ML IV SCH (01:20)
[2023-02-08] MEDS: FUROSEMIDE INJECTION 100 MG in SODIUM CHL 0.9% 100 ML IV SCH (03:30)
[2023-02-08] MEDS: PIPERACILLIN-TAZOB 2.25GM 50 ML IV SCH ×3 (03:31→16:53)
[2023-02-08] MEDS: MIDAZOLAM DRIP 50 mg/50mL 50 ML IV SCH ×5 (04:46→23:00)
[2023-02-08 05:11] LABS: Albumin 2.2 g/dL (3.4-5.0); BUN/Creatinine Ratio 17.4 (10.0-20.0); Calcium 6.5 mg/dL (8.5-10.1)
[2023-02-08 05:13] LABS: Bilirubin, Total 7.1 mg/dL (0.2-1.0); Total Protein 5.6 g/dL (6.4-8.2)
[2023-02-08 05:18] LABS: BUN/Creatinine Ratio 18.5 (10.0-20.0); Calcium 6.6 mg/dL (8.5-10.1)
[2023-02-08] MEDS: ACCU-CHEK COMFORT CURVE STRIP VI SCH ×3 (05:19→17:39)
[2023-02-08] MEDS: InsuLIN REG 1unit/0.01ml Soln (100units/ml) SC SCH ×3 (05:19→17:00)
[2023-02-08] MEDS: PHENYLEPHRINE IV 250 ML IV SCH ×3 (05:35→22:15)
[2023-02-08] MEDS: VASOPRESSIN 20 UNITS in SODIUM CHL 0.9% 99 ML IV SCH ×2 (06:22→17:29)
[2023-02-08] MEDS: fentaNYL Drip 2500mCg/250mlNS 250 ML IV SCH ×2 (06:53→16:55)
[2023-02-08] MEDS ORDERED: TPN PER PHARMACY 0 ML IV SCH (07:30)
[2023-02-08 08:04] LABS: Mean Corpuscular Hemoglobin 25.3 pg (28.0-32.0); Red Cell Distribution Width 18.1 % (11.8-14.3)
[2023-02-08 08:07] LABS: Hematocrit 35.6 % (36.0-46.0); Hemoglobin 11.5 g/dL (12.2-16.2); Mean Corpuscular Hgb Conc. 32.4 g/dL (32.0-36.0); Mean Corpuscular Volume 78.2 fL (80.0-100.0); Red Blood Cells 4.56 10^6/uL (4.0-5.20); White Blood Cell 23.8 10^3/uL (4.4-10.8)
[2023-02-08 08:23] LABS: Basophils % (manual) 0 (0.0-2.0); Blast Cells 0; Eosinophils % (manual) 0 (0-7); Metamyelocytes % 0; Myelocytes % 0; Promyelocytes % 0; Reactive Lymphocytes 0
[2023-02-08 08:51] LABS: Phosphorus 5.9 mg/dL (2.5-4.90)
[2023-02-08 10:55] LABS: Band Neutrophils % (manual) 2; Lymphocytes % (manual) 19 (10.0-50.0); Monocytes % (manual) 5 (0-12)
[2023-02-08] MEDS: PANTOPRAZOLE 40 MG/10 ML VIAL INJ IV SCH (11:36)
[2023-02-08] MEDS: NOREPINEPHRINE BITARTRATE 32 MG in SODIUM CHL 0.9% 218 ML IV SCH (14:49)
[2023-02-08] MEDS: PHENYLEPHRINE INJ 80 MG in SODIUM CHL 0.9% 242 ML IV SCH (17:00)
[2023-02-08] MEDS ORDERED: DEXTROSE 10% 1,000 ML IV ONE (18:00)
[2023-02-08] MEDS ORDERED: DEXTROSE 10% 250 ML Bag IV ONE (18:00)
[2023-02-08] MEDS: PROPOFOL 100 ML IV SCH (19:15)
[2023-02-08] MEDS ORDERED: AMINO ACID INFUSION IN D10W 1,000 ML IV NR (20:00)
[2023-02-08] MEDS ORDERED: TPN PER PHARMACY IV NR ×8 (20:00)
[2023-02-09] VITALS (112 sets, daily range): BP systolic 90–154; BP diastolic 37–64
[2023-02-09] MEDS ORDERED: DEXTROSE (50%) 50ML SYRG IV SCH
[2023-02-09] MEDS: MIDAZOLAM DRIP 50 mg/50mL 50 ML IV SCH ×4 (02:30→19:57)
[2023-02-09] MEDS: fentaNYL Drip 2500mCg/250mlNS 250 ML IV SCH (04:32)
[2023-02-09 05:01] LABS: Potassium 4.3 mmol/L (3.5-5.1)
[2023-02-09 05:11] LABS: Albumin 1.7 g/dL (3.4-5.0); BUN/Creatinine Ratio 15.6 (10.0-20.0); Calcium 6.9 mg/dL (8.5-10.1); Phosphorus 4.5 mg/dL (2.5-4.90); Total Protein 4.8 g/dL (6.4-8.2)
[2023-02-09 05:39] LABS: Hemoglobin 11.3 g/dL (12.2-16.2); Mean Corpuscular Hemoglobin 25.2 pg (28.0-32.0)
[2023-02-09 05:41] LABS: Hematocrit 34.8 % (36.0-46.0); Mean Corpuscular Hgb Conc. 32.5 g/dL (32.0-36.0); Mean Corpuscular Volume 77.6 fL (80.0-100.0); Red Blood Cells 4.49 10^6/uL (4.0-5.20); Red Cell Distribution Width 18.4 % (11.8-14.3); White Blood Cell 18.7 10^3/uL (4.4-10.8)
[2023-02-09] MEDS: ACCU-CHEK COMFORT CURVE STRIP VI SCH ×5 (05:49→23:31)
[2023-02-09] MEDS: InsuLIN REG 1unit/0.01ml Soln (100units/ml) SC SCH ×5 (05:56→23:34)
[2023-02-09 06:01] LABS: Basophils % (manual) 0 (0.0-2.0); Blast Cells 0; Metamyelocytes % 0; Myelocytes % 0; Promyelocytes % 0
[2023-02-09] MEDS: PIPERACILLIN-TAZOB 2.25GM 50 ML IV SCH ×5 (06:09→23:31)
[2023-02-09] MEDS: IPRATROPIUM BROM 0.5 MG/2.5ML INH SOL NEB SCH ×4 (06:18→18:43)
[2023-02-09] MEDS: ALBUTEROL SULF 2.5 MG/0.5ML(0.5%) NEB SOLN NEB SCH ×4 (06:18→18:43)
[2023-02-09 08:14] LABS: Band Neutrophils % (manual) 12; Eosinophils % (manual) 1 (0-7); Lymphocytes % (manual) 5 (10.0-50.0); Monocytes % (manual) 4 (0-12); Reactive Lymphocytes 1
[2023-02-09] MEDS: PANTOPRAZOLE 40 MG/10 ML VIAL INJ IV SCH (09:08)
[2023-02-09] MEDS ORDERED: levoFLOXacin 500MG 100 ML IV SCH (10:00)
[2023-02-09] MEDS ORDERED: DAPTOmycin 500 MG in SODIUM CHL 0.9% 50 ML IV SCH (10:00)
[2023-02-09] MEDS: VASOPRESSIN 20 UNITS in SODIUM CHL 0.9% 99 ML IV SCH (15:43)
[2023-02-09] MEDS: NOREPINEPHRINE BITARTRATE 32 MG in SODIUM CHL 0.9% 218 ML IV SCH ×2 (17:00→20:19)
[2023-02-09] MEDS: PHENYLEPHRINE INJ 80 MG in SODIUM CHL 0.9% 242 ML IV SCH (17:00)
[2023-02-09] MEDS: BUMETANIDE 1mg/4ml VIAL (0.25mg/ml) IV SCH (18:00)
[2023-02-09] MEDS: PROPOFOL 100 ML IV SCH (19:15)
[2023-02-09] MEDS ORDERED: TPN PER PHARMACY IV NR ×9 (20:00)
[2023-02-09] MEDS: PHENYLEPHRINE IV 250 ML IV SCH ×2 (20:20→23:15)
[2023-02-10] VITALS (102 sets, daily range): BP systolic 82–143; BP diastolic 33–54
[2023-02-10] MEDS: IPRATROPIUM BROM 0.5 MG/2.5ML INH SOL NEB SCH ×4 (00:56→18:24)
[2023-02-10] MEDS: ALBUTEROL SULF 2.5 MG/0.5ML(0.5%) NEB SOLN NEB SCH ×4 (00:56→18:24)
[2023-02-10] MEDS: MIDAZOLAM DRIP 50 mg/50mL 50 ML IV SCH ×4 (01:19→21:22)
[2023-02-10] MEDS: VASOPRESSIN 20 UNITS in SODIUM CHL 0.9% 99 ML IV SCH ×2 (02:50→11:38)
[2023-02-10 04:44] LABS: Albumin 1.5 g/dL (3.4-5.0); Potassium 3.9 mmol/L (3.5-5.1)
[2023-02-10 04:47] LABS: BUN/Creatinine Ratio 16.9 (10.0-20.0); Magnesium 1.8 mg/dL (1.6-2.6)
[2023-02-10 04:49] LABS: Bilirubin, Total 6.1 mg/dL (0.2-1.0); Phosphorus 3.9 mg/dL (2.5-4.90)
[2023-02-10] MEDS: BUMETANIDE 1mg/4ml VIAL (0.25mg/ml) IV SCH ×2 (05:47→17:42)
[2023-02-10] MEDS: PIPERACILLIN-TAZOB 2.25GM 50 ML IV SCH ×4 (05:47→23:26)
[2023-02-10] MEDS: ACCU-CHEK COMFORT CURVE STRIP VI SCH ×4 (05:48→23:26)
[2023-02-10] MEDS: InsuLIN REG 1unit/0.01ml Soln (100units/ml) SC SCH ×4 (05:48→23:41)
[2023-02-10] MEDS: PHENYLEPHRINE IV 250 ML IV SCH ×3 (07:31→23:41)
[2023-02-10] MEDS ORDERED: MAGNESIUM SULFATE 1GM/100ML 100 ML IV ONE (08:23)
[2023-02-10] MEDS: MAGNESIUM SULFATE 1GM/100ML 100 ML IV SCH ×2 (08:45→09:45)
[2023-02-10] MEDS: ALBUMIN 25% 100 ML IV SCH ×4 (10:29→23:00)
[2023-02-10] MEDS: PANTOPRAZOLE 40 MG/10 ML VIAL INJ IV SCH (10:30)
[2023-02-10] MEDS: PHENYLEPHRINE INJ 80 MG in SODIUM CHL 0.9% 242 ML IV SCH (13:51)
[2023-02-10] MEDS: NOREPINEPHRINE BITARTRATE 32 MG in SODIUM CHL 0.9% 218 ML IV SCH (16:22)
[2023-02-10] MEDS: PROPOFOL 100 ML IV SCH (17:49)
[2023-02-10] MEDS: fentaNYL Drip 2500mCg/250mlNS 250 ML IV SCH (18:46)
[2023-02-10] MEDS: TPN PER PHARMACY IV NR ×7 (19:40)
[2023-02-10] MEDS ORDERED: TPN PER PHARMACY IV NR ×8 (20:00)
[2023-02-10 23:52] LABS: White Blood Cell 31.6 10^3/uL (4.4-10.8)
[2023-02-11] VITALS (108 sets, daily range): BP systolic 88–189; BP diastolic 32–92
[2023-02-11] MEDS: NOREPINEPHRINE BITARTRATE 32 MG in SODIUM CHL 0.9% 218 ML IV SCH (00:15)
[2023-02-11] MEDS: ALBUTEROL SULF 2.5 MG/0.5ML(0.5%) NEB SOLN NEB SCH ×4 (00:40→18:16)
[2023-02-11] MEDS: IPRATROPIUM BROM 0.5 MG/2.5ML INH SOL NEB SCH ×4 (00:40→18:16)
[2023-02-11] MEDS: VASOPRESSIN 20 UNITS in SODIUM CHL 0.9% 99 ML IV SCH ×3 (01:04→23:18)
[2023-02-11] MEDS: MIDAZOLAM DRIP 50 mg/50mL 50 ML IV SCH ×3 (03:43→21:58)
[2023-02-11 04:44] LABS: Hemoglobin 9.4 g/dL (12.2-16.2)
[2023-02-11 04:47] LABS: Hematocrit 28.9 % (36.0-46.0); Mean Corpuscular Hemoglobin 25.7 pg (28.0-32.0); Mean Corpuscular Hgb Conc. 32.5 g/dL (32.0-36.0); Red Blood Cells 3.66 10^6/uL (4.0-5.20); Red Cell Distribution Width 18.3 % (11.8-14.3); White Blood Cell 15.3 10^3/uL (4.4-10.8)
[2023-02-11 05:13] LABS: Basophils % (manual) 0 (0.0-2.0); Blast Cells 0; Metamyelocytes % 0; Myelocytes % 0; Promyelocytes % 0; Reactive Lymphocytes 0
[2023-02-11 05:16] LABS: Calcium 7.7 mg/dL (8.5-10.1); Magnesium 2.3 mg/dL (1.6-2.6); Potassium 4.2 mmol/L (3.5-5.1)
[2023-02-11 05:18] LABS: Phosphorus 3.2 mg/dL (2.5-4.90)
[2023-02-11] MEDS: ACCU-CHEK COMFORT CURVE STRIP VI SCH ×4 (05:36→23:43)
[2023-02-11] MEDS: PIPERACILLIN-TAZOB 2.25GM 50 ML IV SCH ×4 (05:36→23:43)
[2023-02-11] MEDS: BUMETANIDE 1mg/4ml VIAL (0.25mg/ml) IV SCH ×2 (05:36→17:16)
[2023-02-11] MEDS: InsuLIN REG 1unit/0.01ml Soln (100units/ml) SC SCH ×4 (05:52→23:44)
[2023-02-11] MEDS ORDERED: SODIUM CHL 0.9% 1000 ML BAG XX ONE (07:00)
[2023-02-11 08:32] LABS: Band Neutrophils % (manual) 22; Eosinophils % (manual) 1 (0-7); Lymphocytes % (manual) 3 (10.0-50.0); Monocytes % (manual) 2 (0-12)
[2023-02-11] MEDS: PHENYLEPHRINE IV 250 ML IV SCH ×2 (08:35→16:55)
[2023-02-11] MEDS: PANTOPRAZOLE 40 MG/10 ML VIAL INJ IV SCH (08:50)
[2023-02-11] MEDS: ALBUMIN 25% 100 ML IV SCH ×4 (08:54→22:18)
[2023-02-11] MEDS: fentaNYL Drip 2500mCg/250mlNS 250 ML IV SCH ×2 (14:05→18:45)
[2023-02-11] MEDS: PHENYLEPHRINE INJ 80 MG in SODIUM CHL 0.9% 242 ML IV SCH (17:00)
[2023-02-11] MEDS: PROPOFOL 100 ML IV SCH (19:15)
[2023-02-11] MEDS: TPN PER PHARMACY IV NR ×17 (19:35→19:54)
[2023-02-11] MEDS ORDERED: EPOETIN ALFA-EPBX 4,000 UNIT/ML VIAL SC ONE (21:00)
[2023-02-12] VITALS (101 sets, daily range): BP systolic 85–188; BP diastolic 26–68
[2023-02-12] MEDS: fentaNYL Drip 2500mCg/250mlNS 250 ML IV SCH (00:58)
[2023-02-12] MEDS: MIDAZOLAM DRIP 50 mg/50mL 50 ML IV SCH ×2 (00:59→06:20)
[2023-02-12] MEDS: ALBUTEROL SULF 2.5 MG/0.5ML(0.5%) NEB SOLN NEB SCH ×6 (02:02→22:10)
[2023-02-12] MEDS: IPRATROPIUM BROM 0.5 MG/2.5ML INH SOL NEB SCH ×6 (02:02→22:10)
[2023-02-12 04:23] LABS: Albumin 3.2 g/dL (3.4-5.0); Calcium 8.3 mg/dL (8.5-10.1); Magnesium 2.2 mg/dL (1.6-2.6); Total Protein 5.8 g/dL (6.4-8.2)
[2023-02-12 05:00] LABS: Basophils # (auto) 0 10 ^3/uL (0-0.2); Basophils % (auto) 0.1 % (0.0-2.0); Eosinophils # (auto) 0.1 10 ^3/uL (0-0.8); Hemoglobin 9.5 g/dL (12.2-16.2); Mean Corpuscular Volume 76.9 fL (80.0-100.0)
[2023-02-12 05:03] LABS: Eosinophils % (auto) 0.7 % (0.0-7.0); Hematocrit 29.3 % (36.0-46.0); Lymphocytes # (auto) 0.7 10 ^3/uL (0.4-5.4); Lymphocytes % (auto) 4.6 % (10.0-50.0); Mean Corpuscular Hgb Conc. 32.6 g/dL (32.0-36.0); Monocytes # (auto) 0.4 10 ^3/uL (0-1.3); Monocytes % (auto) 2.5 % (0.0-12.0); Neutrophils # (auto) 13.7 10 ^3/uL (1.6-8.6); Neutrophils % (auto) 92.1 % (37.0-80.0); Nucleated Red Blood Cells % 0.2 %; Red Blood Cells 3.82 10^6/uL (4.0-5.20); Red Cell Distribution Width 18.4 % (11.8-14.3); White Blood Cell 14.9 10^3/uL (4.4-10.8)
[2023-02-12] MEDS: PIPERACILLIN-TAZOB 2.25GM 50 ML IV SCH ×3 (05:37→18:25)
[2023-02-12] MEDS: BUMETANIDE 1mg/4ml VIAL (0.25mg/ml) IV SCH ×2 (05:37→18:25)
[2023-02-12] MEDS: ACCU-CHEK COMFORT CURVE STRIP VI SCH ×3 (05:37→18:26)
[2023-02-12] MEDS: InsuLIN REG 1unit/0.01ml Soln (100units/ml) SC SCH ×3 (05:41→18:27)
[2023-02-12] MEDS ORDERED: SODIUM PHOSP 20MEQ(15MMOL) IN NS 100 ML IV ONE (09:30)
[2023-02-12] MEDS: PANTOPRAZOLE 40 MG/10 ML VIAL INJ IV SCH (09:56)
[2023-02-12] MEDS: ALBUMIN 25% 100 ML IV SCH ×4 (09:56→23:35)
[2023-02-12] MEDS: VASOPRESSIN 20 UNITS in SODIUM CHL 0.9% 99 ML IV SCH ×2 (10:25→21:32)
[2023-02-12] MEDS ORDERED: DOPamine 1600MCG/ML D5W 250 ML IV ONE (14:21)
[2023-02-12] MEDS ORDERED: DOPamine 1600MCG/ML D5W 250 ML IV SCH ×2 (14:30→14:45)
[2023-02-12] MEDS: DOPamine 1600MCG/ML D5W 250 ML IV SCH (16:30)
[2023-02-12] MEDS: NOREPINEPHRINE BITARTRATE 32 MG in SODIUM CHL 0.9% 218 ML IV SCH (16:57)
[2023-02-12] MEDS: PHENYLEPHRINE INJ 80 MG in SODIUM CHL 0.9% 242 ML IV SCH (16:57)
[2023-02-12] MEDS: TPN PER PHARMACY IV NR ×20 (19:56→20:48)
[2023-02-13] VITALS (106 sets, daily range): BP systolic 103–138; BP diastolic 32–48
[2023-02-13] MEDS: PIPERACILLIN-TAZOB 2.25GM 50 ML IV SCH ×4 (00:25→17:38)
[2023-02-13] MEDS: ACCU-CHEK COMFORT CURVE STRIP VI SCH ×4 (00:28→17:37)
[2023-02-13] MEDS: InsuLIN REG 1unit/0.01ml Soln (100units/ml) SC SCH ×4 (00:29→17:38)
[2023-02-13] MEDS: ALBUTEROL SULF 2.5 MG/0.5ML(0.5%) NEB SOLN NEB SCH ×6 (02:00→22:09)
[2023-02-13 04:11] LABS: Basophils # (auto) 0 10 ^3/uL (0-0.2); Basophils % (auto) 0.1 % (0.0-2.0); Eosinophils # (auto) 0.1 10 ^3/uL (0-0.8); Eosinophils % (auto) 0.3 % (0.0-7.0); Hematocrit 24.5 % (36.0-46.0); Hemoglobin 8.3 g/dL (12.2-16.2); Lymphocytes # (auto) 0.6 10 ^3/uL (0.4-5.4); Lymphocytes % (auto) 3.7 % (10.0-50.0); Mean Corpuscular Hemoglobin 25.4 pg (28.0-32.0); Mean Corpuscular Hgb Conc. 33.7 g/dL (32.0-36.0); Mean Corpuscular Volume 75.4 fL (80.0-100.0); Monocytes # (auto) 0.5 10 ^3/uL (0-1.3); Monocytes % (auto) 2.8 % (0.0-12.0); Neutrophils # (auto) 14.9 10 ^3/uL (1.6-8.6); Neutrophils % (auto) 93.1 % (37.0-80.0); Nucleated Red Blood Cells % 0.1 %; Red Blood Cells 3.25 10^6/uL (4.0-5.20); Red Cell Distribution Width 18.6 % (11.8-14.3)
[2023-02-13 04:31] LABS: Albumin 3.5 g/dL (3.4-5.0); Calcium 8.7 mg/dL (8.5-10.1); Magnesium 1.9 mg/dL (1.6-2.6); Potassium 4.1 mmol/L (3.5-5.1)
[2023-02-13 04:37] LABS: BUN/Creatinine Ratio 19.1 (10.0-20.0); Bilirubin, Total 6.2 mg/dL (0.2-1.0); Phosphorus 3.1 mg/dL (2.5-4.90)
[2023-02-13] MEDS: BUMETANIDE 1mg/4ml VIAL (0.25mg/ml) IV SCH (05:36)
[2023-02-13] MEDS: IPRATROPIUM BROM 0.5 MG/2.5ML INH SOL NEB SCH ×4 (06:32→19:07)
[2023-02-13] MEDS: VASOPRESSIN 20 UNITS in SODIUM CHL 0.9% 99 ML IV SCH ×2 (08:39→19:46)
[2023-02-13] MEDS: PANTOPRAZOLE 40 MG/10 ML VIAL INJ IV SCH (09:36)
[2023-02-13] MEDS: PHENYLEPHRINE INJ 80 MG in SODIUM CHL 0.9% 242 ML IV SCH (09:37)
[2023-02-13] MEDS: fentaNYL Drip 2500mCg/250mlNS 250 ML IV SCH (09:37)
[2023-02-13] MEDS: MIDAZOLAM DRIP 50 mg/50mL 50 ML IV SCH (09:37)
[2023-02-13] MEDS: NOREPINEPHRINE BITARTRATE 32 MG in SODIUM CHL 0.9% 218 ML IV SCH (13:31)
[2023-02-13] MEDS: DOPamine 1600MCG/ML D5W 250 ML IV SCH (15:54)
[2023-02-13] MEDS ORDERED: TPN PER PHARMACY IV NR ×21 (20:00)
[2023-02-13] MEDS: TPN PER PHARMACY IV NR ×10 (20:15)
[2023-02-14] VITALS (106 sets, daily range): BP systolic 107–149; BP diastolic 40–54
[2023-02-14] MEDS: InsuLIN REG 1unit/0.01ml Soln (100units/ml) SC SCH ×4 (00:31→16:39)
[2023-02-14] MEDS: PIPERACILLIN-TAZOB 2.25GM 50 ML IV SCH ×4 (00:32→16:39)
[2023-02-14] MEDS: ACCU-CHEK COMFORT CURVE STRIP VI SCH ×4 (00:32→16:39)
[2023-02-14] MEDS: IPRATROPIUM BROM 0.5 MG/2.5ML INH SOL NEB SCH ×6 (02:19→21:52)
[2023-02-14] MEDS: ALBUTEROL SULF 2.5 MG/0.5ML(0.5%) NEB SOLN NEB SCH ×6 (02:19→21:52)
[2023-02-14 04:34] LABS: Basophils # (auto) 0 10 ^3/uL (0-0.2); Basophils % (auto) 0.1 % (0.0-2.0); Eosinophils # (auto) 0 10 ^3/uL (0-0.8); Eosinophils % (auto) 0.3 % (0.0-7.0); Hematocrit 26.4 % (36.0-46.0); Hemoglobin 8.9 g/dL (12.2-16.2); Lymphocytes # (auto) 0.7 10 ^3/uL (0.4-5.4); Lymphocytes % (auto) 3.7 % (10.0-50.0); Mean Corpuscular Hemoglobin 25.6 pg (28.0-32.0); Mean Corpuscular Hgb Conc. 33.8 g/dL (32.0-36.0); Monocytes # (auto) 0.6 10 ^3/uL (0-1.3); Monocytes % (auto) 3.3 % (0.0-12.0); Neutrophils # (auto) 16.8 10 ^3/uL (1.6-8.6); Neutrophils % (auto) 92.6 % (37.0-80.0); Red Blood Cells 3.47 10^6/uL (4.0-5.20); Red Cell Distribution Width 18.5 % (11.8-14.3); White Blood Cell 18.2 10^3/uL (4.4-10.8)
[2023-02-14 04:58] LABS: Albumin 2.8 g/dL (3.4-5.0); Calcium 8.6 mg/dL (8.5-10.1); Magnesium 2.2 mg/dL (1.6-2.6); Potassium 4.4 mmol/L (3.5-5.1)
[2023-02-14 05:02] LABS: BUN/Creatinine Ratio 18.8 (10.0-20.0); Bilirubin, Total 7.1 mg/dL (0.2-1.0); Phosphorus 3.7 mg/dL (2.5-4.90)
[2023-02-14 05:06] LABS: % Iron Saturation 20.8 % (15-50)
[2023-02-14] MEDS: VASOPRESSIN 20 UNITS in SODIUM CHL 0.9% 99 ML IV SCH ×2 (06:53→14:35)
[2023-02-14] MEDS ORDERED: SODIUM CHL 0.9% 1000 ML BAG XX ONE (07:00)
[2023-02-14] MEDS: MIDAZOLAM DRIP 50 mg/50mL 50 ML IV SCH (08:51)
[2023-02-14] MEDS: PHENYLEPHRINE INJ 80 MG in SODIUM CHL 0.9% 242 ML IV SCH (08:51)
[2023-02-14] MEDS: fentaNYL Drip 2500mCg/250mlNS 250 ML IV SCH (08:51)
[2023-02-14] MEDS: PANTOPRAZOLE 40 MG/10 ML VIAL INJ IV SCH (09:34)
[2023-02-14 11:59] LABS: Hepatitis A Ab IgM Negative; Hepatitis B Core IgM Negative
[2023-02-14 12:00] LABS: Hepatitis C Antibody Negative (Negative)
[2023-02-14] MEDS: DOPamine 1600MCG/ML D5W 250 ML IV SCH (14:34)
[2023-02-14] MEDS: NOREPINEPHRINE BITARTRATE 32 MG in SODIUM CHL 0.9% 218 ML IV SCH (14:34)
[2023-02-14] MEDS: TPN PER PHARMACY IV NR ×10 (20:45)
[2023-02-14] MEDS ORDERED: EPOETIN ALFA-EPBX 10,000 UNIT/1ML VIAL SC ONE (21:00)
[2023-02-15] VITALS (105 sets, daily range): BP systolic 96–161; BP diastolic 43–91
[2023-02-15] MEDS: PIPERACILLIN-TAZOB 2.25GM 50 ML IV SCH ×4 (00:29→17:10)
[2023-02-15] MEDS: ACCU-CHEK COMFORT CURVE STRIP VI SCH ×4 (00:30→16:33)
[2023-02-15] MEDS: InsuLIN REG 1unit/0.01ml Soln (100units/ml) SC SCH ×4 (00:32→17:09)
[2023-02-15] MEDS: IPRATROPIUM BROM 0.5 MG/2.5ML INH SOL NEB SCH ×6 (02:05→22:47)
[2023-02-15] MEDS: ALBUTEROL SULF 2.5 MG/0.5ML(0.5%) NEB SOLN NEB SCH ×6 (02:05→22:47)
[2023-02-15] MEDS: VASOPRESSIN 20 UNITS in SODIUM CHL 0.9% 99 ML IV SCH ×2 (05:07→11:49)
[2023-02-15 05:12] LABS: Basophils # (auto) 0 10 ^3/uL (0-0.2); Eosinophils # (auto) 0.1 10 ^3/uL (0-0.8); Hemoglobin 8.7 g/dL (12.2-16.2); Lymphocytes # (auto) 0.8 10 ^3/uL (0.4-5.4); Mean Corpuscular Volume 74.6 fL (80.0-100.0); Red Cell Distribution Width 18.7 % (11.8-14.3)
[2023-02-15 05:16] LABS: Basophils % (auto) 0.2 % (0.0-2.0); Eosinophils % (auto) 0.6 % (0.0-7.0); Hematocrit 25.9 % (36.0-46.0); Lymphocytes % (auto) 4.8 % (10.0-50.0); Mean Corpuscular Hemoglobin 25.1 pg (28.0-32.0); Mean Corpuscular Hgb Conc. 33.6 g/dL (32.0-36.0); Monocytes # (auto) 0.6 10 ^3/uL (0-1.3); Monocytes % (auto) 3.9 % (0.0-12.0); Neutrophils # (auto) 14.6 10 ^3/uL (1.6-8.6); Neutrophils % (auto) 90.5 % (37.0-80.0); Nucleated Red Blood Cells % 0.1 %; Red Blood Cells 3.47 10^6/uL (4.0-5.20); White Blood Cell 16.1 10^3/uL (4.4-10.8)
[2023-02-15 05:19] LABS: Potassium 3.9 mmol/L (3.5-5.1)
[2023-02-15 05:32] LABS: Albumin 2.4 g/dL (3.4-5.0); BUN/Creatinine Ratio 19.3 (10.0-20.0); Bilirubin, Total 7.5 mg/dL (0.2-1.0); Calcium 8.4 mg/dL (8.5-10.1); Magnesium 2.2 mg/dL (1.6-2.6); Total Protein 5.9 g/dL (6.4-8.2)
[2023-02-15] MEDS ORDERED: SODIUM CHL 0.9% 1000 ML BAG XX ONE (07:00)
[2023-02-15] MEDS: PANTOPRAZOLE 40 MG/10 ML VIAL INJ IV SCH (07:59)
[2023-02-15] MEDS: MIDAZOLAM DRIP 50 mg/50mL 50 ML IV SCH (11:49)
[2023-02-15] MEDS: DOPamine 1600MCG/ML D5W 250 ML IV SCH (11:49)
[2023-02-15] MEDS: PHENYLEPHRINE INJ 80 MG in SODIUM CHL 0.9% 242 ML IV SCH (11:50)
[2023-02-15] MEDS: NOREPINEPHRINE BITARTRATE 32 MG in SODIUM CHL 0.9% 218 ML IV SCH (11:50)
[2023-02-15] MEDS ORDERED: AMIODARONE HCL 150 MG in D5W 5% 100 ML IV ONE (16:30)
[2023-02-15] MEDS ORDERED: METOPROLOL TARTRATE 1MG/1ML-5ML VIAL IV ONE (17:30)
[2023-02-15] MEDS ORDERED: DIGOXIN (250MCG/ML) 2 ML AMPULE IV ONE (17:30)
[2023-02-15] MEDS: TPN PER PHARMACY IV NR ×20 (20:08)
[2023-02-15] MEDS ORDERED: EPOETIN ALFA-EPBX 10,000 UNIT/1ML VIAL SC ONE (21:00)
[2023-02-16] VITALS (93 sets, daily range): BP systolic 108–185; BP diastolic 42–94
[2023-02-16] MEDS: PIPERACILLIN-TAZOB 2.25GM 50 ML IV SCH ×5 (00:27→23:46)
[2023-02-16] MEDS: ACCU-CHEK COMFORT CURVE STRIP VI SCH ×4 (00:29→17:33)
[2023-02-16] MEDS: ALBUTEROL SULF 2.5 MG/0.5ML(0.5%) NEB SOLN NEB SCH ×6 (03:04→22:03)
[2023-02-16] MEDS: IPRATROPIUM BROM 0.5 MG/2.5ML INH SOL NEB SCH ×6 (03:04→22:03)
[2023-02-16] MEDS: VASOPRESSIN 20 UNITS in SODIUM CHL 0.9% 99 ML IV SCH ×2 (03:21→10:32)
[2023-02-16 04:20] LABS: Hematocrit 27.3 % (36.0-46.0); Hemoglobin 9.1 g/dL (12.2-16.2); White Blood Cell 13.4 10^3/uL (4.4-10.8)
[2023-02-16 04:23] LABS: Mean Corpuscular Hemoglobin 25.2 pg (28.0-32.0); Mean Corpuscular Hgb Conc. 33.4 g/dL (32.0-36.0); Mean Corpuscular Volume 75.5 fL (80.0-100.0); Red Blood Cells 3.62 10^6/uL (4.0-5.20); Red Cell Distribution Width 18.5 % (11.8-14.3)
[2023-02-16 04:38] LABS: Potassium 3.9 mmol/L (3.5-5.1)
[2023-02-16 04:42] LABS: BUN/Creatinine Ratio 19.8 (10.0-20.0); Calcium 8.3 mg/dL (8.5-10.1)
[2023-02-16 04:45] LABS: Bilirubin, Total 6.6 mg/dL (0.2-1.0); Phosphorus 2.7 mg/dL (2.5-4.90)
[2023-02-16 05:00] LABS: Basophils % (manual) 0 (0.0-2.0); Blast Cells 0; Metamyelocytes % 0; Myelocytes % 0; Promyelocytes % 0; Reactive Lymphocytes 0
[2023-02-16 06:00] LABS: Band Neutrophils % (manual) 9; Eosinophils % (manual) 2 (0-7); Lymphocytes % (manual) 5 (10.0-50.0); Monocytes % (manual) 1 (0-12)
[2023-02-16] MEDS: InsuLIN REG 1unit/0.01ml Soln (100units/ml) SC SCH ×4 (06:00→17:33)
[2023-02-16] MEDS: PANTOPRAZOLE 40 MG/10 ML VIAL INJ IV SCH (07:57)
[2023-02-16] MEDS: DOPamine 1600MCG/ML D5W 250 ML IV SCH (10:32)
[2023-02-16] MEDS: PHENYLEPHRINE INJ 80 MG in SODIUM CHL 0.9% 242 ML IV SCH (10:33)
[2023-02-16] MEDS: MIDAZOLAM DRIP 50 mg/50mL 50 ML IV SCH (10:33)
[2023-02-16] MEDS: NOREPINEPHRINE BITARTRATE 32 MG in SODIUM CHL 0.9% 218 ML IV SCH (10:33)
[2023-02-16] MEDS ORDERED: FUROSEMIDE 100 MG/10ML VIAL IV ONE (13:30)
[2023-02-16] MEDS ORDERED: ASPirin 81 mg TAB PO ONE (17:00)
[2023-02-16] MEDS: FUROSEMIDE 100 MG/10ML VIAL IV SCH (17:41)
[2023-02-16] MEDS: TPN PER PHARMACY IV NR ×10 (19:59)
[2023-02-16] MEDS ORDERED: TPN PER PHARMACY IV NR ×10 (20:00)
[2023-02-17] VITALS (49 sets, daily range): BP systolic 124–180; BP diastolic 46–98
[2023-02-17] MEDS: ACCU-CHEK COMFORT CURVE STRIP VI SCH ×5 (00:14→23:15)
[2023-02-17] MEDS: InsuLIN REG 1unit/0.01ml Soln (100units/ml) SC SCH ×5 (00:15→23:20)
[2023-02-17] MEDS: VASOPRESSIN 20 UNITS in SODIUM CHL 0.9% 99 ML IV SCH ×3 (00:24→23:49)
[2023-02-17] MEDS: ALBUTEROL SULF 2.5 MG/0.5ML(0.5%) NEB SOLN NEB SCH ×6 (02:13→22:10)
[2023-02-17] MEDS: IPRATROPIUM BROM 0.5 MG/2.5ML INH SOL NEB SCH ×6 (02:13→22:10)
[2023-02-17 05:03] LABS: Hemoglobin 8.9 g/dL (12.2-16.2); Mean Corpuscular Hemoglobin 24.9 pg (28.0-32.0); Red Blood Cells 3.59 10^6/uL (4.0-5.20); Red Cell Distribution Width 18.6 % (11.8-14.3)
[2023-02-17 05:06] LABS: Hematocrit 26.9 % (36.0-46.0); Mean Corpuscular Hgb Conc. 33.1 g/dL (32.0-36.0); Mean Corpuscular Volume 75.1 fL (80.0-100.0); White Blood Cell 13.3 10^3/uL (4.4-10.8)
[2023-02-17 05:12] LABS: Basophils % (manual) 0 (0.0-2.0); Blast Cells 0; Calcium 8.3 mg/dL (8.5-10.1); Magnesium 2.3 mg/dL (1.6-2.6); Metamyelocytes % 0; Myelocytes % 0; Promyelocytes % 0; Reactive Lymphocytes 0
[2023-02-17 05:17] LABS: BUN/Creatinine Ratio 19.9 (10.0-20.0); Bilirubin, Total 6.4 mg/dL (0.2-1.0); Total Protein 6.1 g/dL (6.4-8.2)
[2023-02-17] MEDS: PIPERACILLIN-TAZOB 2.25GM 50 ML IV SCH ×4 (05:48→23:15)
[2023-02-17] MEDS: FUROSEMIDE 100 MG/10ML VIAL IV SCH ×2 (05:48→18:22)
[2023-02-17 07:29] LABS: Band Neutrophils % (manual) 16; Eosinophils % (manual) 1 (0-7); Lymphocytes % (manual) 8 (10.0-50.0); Monocytes % (manual) 3 (0-12)
[2023-02-17] MEDS: ASPirin 81 mg TAB PO SCH (10:07)
[2023-02-17] MEDS: PANTOPRAZOLE 40 MG/10 ML VIAL INJ IV SCH (10:07)
[2023-02-17] MEDS: MIDAZOLAM DRIP 50 mg/50mL 50 ML IV SCH (16:30)
[2023-02-17] MEDS: DOPamine 1600MCG/ML D5W 250 ML IV SCH (16:30)
[2023-02-17] MEDS: PHENYLEPHRINE INJ 80 MG in SODIUM CHL 0.9% 242 ML IV SCH (17:00)
[2023-02-17] MEDS: NOREPINEPHRINE BITARTRATE 32 MG in SODIUM CHL 0.9% 218 ML IV SCH (17:00)
[2023-02-17] MEDS ORDERED: TPN PER PHARMACY IV NR ×10 (20:00)
[2023-02-18] VITALS (56 sets, daily range): BP systolic 117–172; BP diastolic 37–90
[2023-02-18] MEDS: ALBUTEROL SULF 2.5 MG/0.5ML(0.5%) NEB SOLN NEB SCH ×6 (02:03→21:57)
[2023-02-18 04:22] LABS: Hemoglobin 8.6 g/dL (12.2-16.2); Lymphocytes # (auto) 0.9 10 ^3/uL (0.4-5.4); Neutrophils # (auto) 11.5 10 ^3/uL (1.6-8.6); Nucleated Red Blood Cells % 0.1 %
[2023-02-18 04:23] LABS: Basophils # (auto) 0.1 10 ^3/uL (0-0.2); Basophils % (auto) 1.1 % (0.0-2.0); Eosinophils # (auto) 0.1 10 ^3/uL (0-0.8); Eosinophils % (auto) 0.9 % (0.0-7.0); Hematocrit 25.7 % (36.0-46.0); Mean Corpuscular Hemoglobin 25.3 pg (28.0-32.0); Mean Corpuscular Hgb Conc. 33.6 g/dL (32.0-36.0); Mean Corpuscular Volume 75.1 fL (80.0-100.0); Monocytes # (auto) 0.6 10 ^3/uL (0-1.3); Monocytes % (auto) 4.7 % (0.0-12.0); Neutrophils % (auto) 86.3 % (37.0-80.0); Red Blood Cells 3.42 10^6/uL (4.0-5.20); White Blood Cell 13.3 10^3/uL (4.4-10.8)
[2023-02-18 04:56] LABS: Potassium 4.1 mmol/L (3.5-5.1)
[2023-02-18 05:02] LABS: Albumin 1.8 g/dL (3.4-5.0); BUN/Creatinine Ratio 23.3 (10.0-20.0); Bilirubin, Total 5.1 mg/dL (0.2-1.0); Calcium 8.2 mg/dL (8.5-10.1); Magnesium 2.4 mg/dL (1.6-2.6); Phosphorus 5.2 mg/dL (2.5-4.90); Total Protein 6.1 g/dL (6.4-8.2)
[2023-02-18] MEDS: IPRATROPIUM BROM 0.5 MG/2.5ML INH SOL NEB SCH ×3 (05:46→18:49)
[2023-02-18] MEDS: PIPERACILLIN-TAZOB 2.25GM 50 ML IV SCH ×4 (06:36→23:45)
[2023-02-18] MEDS: FUROSEMIDE 100 MG/10ML VIAL IV SCH ×2 (06:36→17:34)
[2023-02-18] MEDS: ACCU-CHEK COMFORT CURVE STRIP VI SCH ×4 (06:36→23:57)
[2023-02-18] MEDS: InsuLIN REG 1unit/0.01ml Soln (100units/ml) SC SCH ×4 (06:37→23:58)
[2023-02-18] MEDS: VASOPRESSIN 20 UNITS in SODIUM CHL 0.9% 99 ML IV SCH ×2 (10:56→21:54)
[2023-02-18] MEDS: PANTOPRAZOLE 40 MG/10 ML VIAL INJ IV SCH (13:15)
[2023-02-18] MEDS: ASPirin 81 mg TAB PO SCH (13:15)
[2023-02-18] MEDS ORDERED: LORazepam 2MG/ML-1ML VIAL IV PRN (15:45)
[2023-02-18] MEDS: MIDAZOLAM DRIP 50 mg/50mL 50 ML IV SCH (16:30)
[2023-02-18] MEDS: DOPamine 1600MCG/ML D5W 250 ML IV SCH (16:30)
[2023-02-18] MEDS: NOREPINEPHRINE BITARTRATE 32 MG in SODIUM CHL 0.9% 218 ML IV SCH (17:00)
[2023-02-18] MEDS: PHENYLEPHRINE INJ 80 MG in SODIUM CHL 0.9% 242 ML IV SCH (17:00)
[2023-02-18] MEDS: TPN PER PHARMACY IV NR ×9 (19:46)
[2023-02-18] MEDS: ATORVASTATIN 20 MG TAB PO SCH (21:54)
[2023-02-19] VITALS (47 sets, daily range): BP systolic 115–177; BP diastolic 45–68
[2023-02-19] MEDS: IPRATROPIUM BROM 0.5 MG/2.5ML INH SOL NEB SCH ×6 (02:51→22:19)
[2023-02-19] MEDS: ALBUTEROL SULF 2.5 MG/0.5ML(0.5%) NEB SOLN NEB SCH ×6 (02:51→22:19)
[2023-02-19 04:08] LABS: Mean Corpuscular Hgb Conc. 33.2 g/dL (32.0-36.0)
[2023-02-19 04:12] LABS: Hematocrit 27.2 % (36.0-46.0); Mean Corpuscular Hemoglobin 25.1 pg (28.0-32.0); Mean Corpuscular Volume 75.6 fL (80.0-100.0); Red Blood Cells 3.59 10^6/uL (4.0-5.20); White Blood Cell 13.1 10^3/uL (4.4-10.8)
[2023-02-19 04:16] LABS: Basophils % (manual) 0 (0.0-2.0); Blast Cells 0; Promyelocytes % 0; Reactive Lymphocytes 0
[2023-02-19 04:18] LABS: Potassium 3.6 mmol/L (3.5-5.1)
[2023-02-19 04:25] LABS: Albumin 1.9 g/dL (3.4-5.0); BUN/Creatinine Ratio 22.2 (10.0-20.0); Bilirubin, Total 4.4 mg/dL (0.2-1.0); Calcium 8.3 mg/dL (8.5-10.1); Magnesium 2.2 mg/dL (1.6-2.6); Phosphorus 4.3 mg/dL (2.5-4.90); Total Protein 6.6 g/dL (6.4-8.2)
[2023-02-19 05:07] LABS: Band Neutrophils % (manual) 3; Eosinophils % (manual) 1 (0-7); Lymphocytes % (manual) 7 (10.0-50.0); Metamyelocytes % 1; Monocytes % (manual) 2 (0-12); Myelocytes % 2
[2023-02-19] MEDS: PIPERACILLIN-TAZOB 2.25GM 50 ML IV SCH ×4 (05:58→23:15)
[2023-02-19] MEDS: FUROSEMIDE 100 MG/10ML VIAL IV SCH ×2 (05:59→18:00)
[2023-02-19] MEDS: ACCU-CHEK COMFORT CURVE STRIP VI SCH ×4 (05:59→23:11)
[2023-02-19] MEDS: InsuLIN REG 1unit/0.01ml Soln (100units/ml) SC SCH ×4 (06:00→23:12)
[2023-02-19] MEDS: VASOPRESSIN 20 UNITS in SODIUM CHL 0.9% 99 ML IV SCH ×2 (09:10→20:17)
[2023-02-19] MEDS: ASPirin 81 mg TAB PO SCH (09:21)
[2023-02-19] MEDS: PANTOPRAZOLE 40 MG/10 ML VIAL INJ IV SCH (09:21)
[2023-02-19] MEDS ORDERED: SODIUM CHL 0.9% 1000 ML BAG XX ONE (13:30)
[2023-02-19] MEDS: DOPamine 1600MCG/ML D5W 250 ML IV SCH (16:30)
[2023-02-19] MEDS: MIDAZOLAM DRIP 50 mg/50mL 50 ML IV SCH (16:30)
[2023-02-19] MEDS: NOREPINEPHRINE BITARTRATE 32 MG in SODIUM CHL 0.9% 218 ML IV SCH (17:00)
[2023-02-19] MEDS: PHENYLEPHRINE INJ 80 MG in SODIUM CHL 0.9% 242 ML IV SCH (17:00)
[2023-02-19] MEDS: TPN PER PHARMACY IV NR ×18 (19:40→19:56)
[2023-02-19] MEDS ORDERED: EPOETIN ALFA-EPBX 10,000 UNIT/1ML VIAL SC ONE (21:00)
[2023-02-19] MEDS: ATORVASTATIN 20 MG TAB PO SCH (22:01)
[2023-02-19] MEDS: APIXABAN 2.5 MG TAB PO SCH (22:01)
[2023-02-20] VITALS (70 sets, daily range): BP systolic 111–167; BP diastolic 36–80
[2023-02-20] MEDS: ALBUTEROL SULF 2.5 MG/0.5ML(0.5%) NEB SOLN NEB SCH ×6 (02:19→22:37)
[2023-02-20] MEDS: IPRATROPIUM BROM 0.5 MG/2.5ML INH SOL NEB SCH ×6 (02:19→22:37)
[2023-02-20 04:29] LABS: Hematocrit 26.4 % (36.0-46.0); Hemoglobin 8.7 g/dL (12.2-16.2)
[2023-02-20 04:36] LABS: Mean Corpuscular Hgb Conc. 32.9 g/dL (32.0-36.0); Mean Corpuscular Volume 76.1 fL (80.0-100.0); Red Blood Cells 3.47 10^6/uL (4.0-5.20); White Blood Cell 13.4 10^3/uL (4.4-10.8)
[2023-02-20 04:39] LABS: Basophils % (manual) 0 (0.0-2.0); Blast Cells 0; Metamyelocytes % 0; Myelocytes % 0; Promyelocytes % 0; Reactive Lymphocytes 0
[2023-02-20 04:46] LABS: Magnesium 1.9 mg/dL (1.6-2.6); Potassium 3.3 mmol/L (3.5-5.1)
[2023-02-20 04:52] LABS: Albumin 1.8 g/dL (3.4-5.0); BUN/Creatinine Ratio 22.7 (10.0-20.0); Calcium 8.2 mg/dL (8.5-10.1); Phosphorus 3.2 mg/dL (2.5-4.90); Total Protein 6.9 g/dL (6.4-8.2)
[2023-02-20 05:35] LABS: Band Neutrophils % (manual) 4; Eosinophils % (manual) 1 (0-7); Lymphocytes % (manual) 9 (10.0-50.0); Monocytes % (manual) 8 (0-12)
[2023-02-20] MEDS: FUROSEMIDE 100 MG/10ML VIAL IV SCH ×2 (05:58→17:26)
[2023-02-20] MEDS: ACCU-CHEK COMFORT CURVE STRIP VI SCH ×3 (05:59→18:03)
[2023-02-20] MEDS: InsuLIN REG 1unit/0.01ml Soln (100units/ml) SC SCH ×3 (06:17→18:03)
[2023-02-20] MEDS: VASOPRESSIN 20 UNITS in SODIUM CHL 0.9% 99 ML IV SCH ×2 (07:24→16:32)
[2023-02-20] MEDS ORDERED: POTASSIUM CHL 20MEQ/100ML 100 ML IV ONE (09:45)
[2023-02-20] MEDS: APIXABAN 2.5 MG TAB PO SCH ×2 (10:24→22:33)
[2023-02-20] MEDS: ASPirin 81 mg TAB PO SCH (10:24)
[2023-02-20] MEDS: PANTOPRAZOLE 40 MG/10 ML VIAL INJ IV SCH (10:24)
[2023-02-20] MEDS: DOPamine 1600MCG/ML D5W 250 ML IV SCH (16:30)
[2023-02-20] MEDS: MIDAZOLAM DRIP 50 mg/50mL 50 ML IV SCH (16:30)
[2023-02-20] MEDS: NOREPINEPHRINE BITARTRATE 32 MG in SODIUM CHL 0.9% 218 ML IV SCH (16:32)
[2023-02-20] MEDS: PHENYLEPHRINE INJ 80 MG in SODIUM CHL 0.9% 242 ML IV SCH (16:32)
[2023-02-20] MEDS: PROPOFOL 100 ML IV SCH (17:15)
[2023-02-20] MEDS: TPN PER PHARMACY IV NR ×9 (19:56)
[2023-02-20] MEDS ORDERED: TPN PER PHARMACY IV NR ×10 (20:00)
[2023-02-20] MEDS: ATORVASTATIN 20 MG TAB PO SCH (22:33)
[2023-02-21] VITALS (42 sets, daily range): BP systolic 128–182; BP diastolic 39–76
[2023-02-21] MEDS: ALBUTEROL SULF 2.5 MG/0.5ML(0.5%) NEB SOLN NEB SCH ×6 (02:36→22:12)
[2023-02-21] MEDS: IPRATROPIUM BROM 0.5 MG/2.5ML INH SOL NEB SCH ×4 (02:36→18:40)
[2023-02-21 03:31] LABS: Hemoglobin 8.2 g/dL (12.2-16.2)
[2023-02-21 03:32] LABS: Hematocrit 24.2 % (36.0-46.0); Mean Corpuscular Hemoglobin 25.7 pg (28.0-32.0); Mean Corpuscular Hgb Conc. 33.7 g/dL (32.0-36.0); Mean Corpuscular Volume 76.2 fL (80.0-100.0); Red Blood Cells 3.18 10^6/uL (4.0-5.20); Red Cell Distribution Width 19.8 % (11.8-14.3); White Blood Cell 12.2 10^3/uL (4.4-10.8)
[2023-02-21 03:43] LABS: Basophils % (manual) 0 (0.0-2.0); Blast Cells 0; Metamyelocytes % 0; Promyelocytes % 0; Reactive Lymphocytes 0
[2023-02-21 04:11] LABS: Albumin 1.9 g/dL (3.4-5.0); Calcium 8.4 mg/dL (8.5-10.1); Magnesium 2.1 mg/dL (1.6-2.6); Potassium 3.6 mmol/L (3.5-5.1)
[2023-02-21 04:14] LABS: Bilirubin, Total 3.3 mg/dL (0.2-1.0); Phosphorus 3.9 mg/dL (2.5-4.90); Total Protein 6.8 g/dL (6.4-8.2)
[2023-02-21 05:15] LABS: Band Neutrophils % (manual) 4; Eosinophils % (manual) 3 (0-7); Lymphocytes % (manual) 9 (10.0-50.0); Monocytes % (manual) 1 (0-12); Myelocytes % 2
[2023-02-21] MEDS: VASOPRESSIN 20 UNITS in SODIUM CHL 0.9% 99 ML IV SCH ×2 (05:38→16:45)
[2023-02-21] MEDS: ACCU-CHEK COMFORT CURVE STRIP VI SCH ×4 (06:00→18:01)
[2023-02-21] MEDS: InsuLIN REG 1unit/0.01ml Soln (100units/ml) SC SCH ×4 (06:23→18:00)
[2023-02-21] MEDS: FUROSEMIDE 100 MG/10ML VIAL IV SCH ×2 (06:37→17:58)
[2023-02-21] MEDS ORDERED: SODIUM CHL 0.9% 1000 ML BAG XX ONE (07:00)
[2023-02-21] MEDS: APIXABAN 2.5 MG TAB PO SCH ×2 (10:08→21:50)
[2023-02-21] MEDS: PANTOPRAZOLE 40 MG/10 ML VIAL INJ IV SCH (10:08)
[2023-02-21] MEDS: ASPirin 81 mg TAB PO SCH (10:08)
[2023-02-21] MEDS: DOPamine 1600MCG/ML D5W 250 ML IV SCH (16:30)
[2023-02-21] MEDS: MIDAZOLAM DRIP 50 mg/50mL 50 ML IV SCH (16:30)
[2023-02-21] MEDS: PHENYLEPHRINE INJ 80 MG in SODIUM CHL 0.9% 242 ML IV SCH (17:00)
[2023-02-21] MEDS: NOREPINEPHRINE BITARTRATE 32 MG in SODIUM CHL 0.9% 218 ML IV SCH (17:00)
[2023-02-21] MEDS: PROPOFOL 100 ML IV SCH (17:15)
[2023-02-21] MEDS: TPN PER PHARMACY IV NR ×9 (20:29)
[2023-02-21] MEDS ORDERED: EPOETIN ALFA-EPBX 10,000 UNIT/1ML VIAL SC ONE (21:00)
[2023-02-21] MEDS: ATORVASTATIN 20 MG TAB PO SCH (21:50)
[2023-02-22] VITALS (89 sets, daily range): BP systolic 103–165; BP diastolic 38–86
[2023-02-22] MEDS: ACCU-CHEK COMFORT CURVE STRIP VI SCH ×5 (00:36→23:43)
[2023-02-22] MEDS: InsuLIN REG 1unit/0.01ml Soln (100units/ml) SC SCH ×5 (00:38→23:43)
[2023-02-22] MEDS: IPRATROPIUM BROM 0.5 MG/2.5ML INH SOL NEB SCH ×5 (02:26→18:17)
[2023-02-22] MEDS: ALBUTEROL SULF 2.5 MG/0.5ML(0.5%) NEB SOLN NEB SCH ×6 (02:26→22:09)
[2023-02-22 03:38] LABS: Hemoglobin 8.5 g/dL (12.2-16.2)
[2023-02-22 03:40] LABS: Hematocrit 25.4 % (36.0-46.0); Mean Corpuscular Hemoglobin 25.7 pg (28.0-32.0); Mean Corpuscular Hgb Conc. 33.3 g/dL (32.0-36.0); Mean Corpuscular Volume 77.1 fL (80.0-100.0); Red Blood Cells 3.29 10^6/uL (4.0-5.20); Red Cell Distribution Width 19.7 % (11.8-14.3); White Blood Cell 12.2 10^3/uL (4.4-10.8)
[2023-02-22] MEDS: VASOPRESSIN 20 UNITS in SODIUM CHL 0.9% 99 ML IV SCH ×2 (03:52→14:59)
[2023-02-22 03:53] LABS: Band Neutrophils % (manual) 0; Basophils % (manual) 0 (0.0-2.0); Blast Cells 0; Eosinophils % (manual) 0 (0-7); Metamyelocytes % 0; Myelocytes % 0; Promyelocytes % 0; Reactive Lymphocytes 0
[2023-02-22 03:57] LABS: Calcium 8.6 mg/dL (8.5-10.1); Potassium 3.5 mmol/L (3.5-5.1)
[2023-02-22 04:03] LABS: BUN/Creatinine Ratio 25.1 (10.0-20.0); Bilirubin, Total 3.4 mg/dL (0.2-1.0); Magnesium 2.3 mg/dL (1.6-2.6); Phosphorus 3.3 mg/dL (2.5-4.90); Total Protein 7.4 g/dL (6.4-8.2)
[2023-02-22 04:32] LABS: Lymphocytes % (manual) 8 (10.0-50.0); Monocytes % (manual) 6 (0-12)
[2023-02-22] MEDS: FUROSEMIDE 100 MG/10ML VIAL IV SCH ×2 (06:04→17:58)
[2023-02-22] MEDS: APIXABAN 2.5 MG TAB PO SCH ×2 (10:00→22:45)
[2023-02-22] MEDS: PANTOPRAZOLE 40 MG/10 ML VIAL INJ IV SCH (10:26)
[2023-02-22] MEDS: ASPirin 81 mg TAB PO SCH (10:27)
[2023-02-22] MEDS: MORPHINE SULFATE INJ 2 MG/ml SYRG IV PRN (11:01)
[2023-02-22] MEDS: DOPamine 1600MCG/ML D5W 250 ML IV SCH (16:25)
[2023-02-22] MEDS: NOREPINEPHRINE BITARTRATE 32 MG in SODIUM CHL 0.9% 218 ML IV SCH (16:25)
[2023-02-22] MEDS: PROPOFOL 100 ML IV SCH (16:25)
[2023-02-22] MEDS: MIDAZOLAM DRIP 50 mg/50mL 50 ML IV SCH (16:25)
[2023-02-22] MEDS: PHENYLEPHRINE INJ 80 MG in SODIUM CHL 0.9% 242 ML IV SCH (16:25)
[2023-02-22] MEDS: TPN PER PHARMACY IV NR ×9 (19:54)
[2023-02-22] MEDS ORDERED: TPN PER PHARMACY IV NR ×9 (20:00)
[2023-02-22] MEDS: ATORVASTATIN 20 MG TAB PO SCH (22:45)
[2023-02-23] VITALS (77 sets, daily range): BP systolic 129–178; BP diastolic 30–69
[2023-02-23] MEDS: VASOPRESSIN 20 UNITS in SODIUM CHL 0.9% 99 ML IV SCH ×2 (02:06→13:13)
[2023-02-23] MEDS: ALBUTEROL SULF 2.5 MG/0.5ML(0.5%) NEB SOLN NEB SCH ×6 (02:46→21:51)
[2023-02-23] MEDS: IPRATROPIUM BROM 0.5 MG/2.5ML INH SOL NEB SCH ×6 (02:46→21:51)
[2023-02-23] MEDS ORDERED: hydrALAZINE HCL 20 MG/ML VL IV PRN (03:15)
[2023-02-23 04:05] LABS: Calcium 8.5 mg/dL (8.5-10.1); Potassium 3.3 mmol/L (3.5-5.1)
[2023-02-23 04:09] LABS: BUN/Creatinine Ratio 28.8 (10.0-20.0); Bilirubin, Total 2.9 mg/dL (0.2-1.0); Phosphorus 4.1 mg/dL (2.5-4.90); Total Protein 7.4 g/dL (6.4-8.2)
[2023-02-23] MEDS: FUROSEMIDE 100 MG/10ML VIAL IV SCH ×2 (05:33→18:52)
[2023-02-23] MEDS: ACCU-CHEK COMFORT CURVE STRIP VI SCH ×3 (06:00→18:00)
[2023-02-23] MEDS: InsuLIN REG 1unit/0.01ml Soln (100units/ml) SC SCH ×3 (06:09→19:28)
[2023-02-23] MEDS: PANTOPRAZOLE 40 MG/10 ML VIAL INJ IV SCH (08:45)
[2023-02-23] MEDS ORDERED: POTASSIUM CHL 20MEQ/100ML 100 ML IV ONE (09:45)
[2023-02-23] MEDS: APIXABAN 2.5 MG TAB PO SCH ×2 (11:10→22:14)
[2023-02-23] MEDS: ASPirin 81 mg TAB PO SCH (11:10)
[2023-02-23] MEDS: MIDAZOLAM DRIP 50 mg/50mL 50 ML IV SCH (15:56)
[2023-02-23] MEDS: PHENYLEPHRINE INJ 80 MG in SODIUM CHL 0.9% 242 ML IV SCH (15:56)
[2023-02-23] MEDS: DOPamine 1600MCG/ML D5W 250 ML IV SCH (15:56)
[2023-02-23] MEDS: PROPOFOL 100 ML IV SCH (15:57)
[2023-02-23] MEDS: NOREPINEPHRINE BITARTRATE 32 MG in SODIUM CHL 0.9% 218 ML IV SCH (15:57)
[2023-02-23] MEDS: MORPHINE SULFATE INJ 2 MG/ml SYRG IV PRN (16:05)
[2023-02-23] MEDS: SODIUM CHLORIDE 0.9% 1,000 ML IV SCH (18:52)
[2023-02-23] MEDS: TPN PER PHARMACY IV NR ×9 (22:09)
[2023-02-23] MEDS: ATORVASTATIN 20 MG TAB PO SCH (22:14)
[2023-02-24] VITALS (101 sets, daily range): BP systolic 121–182; BP diastolic 29–66
[2023-02-24] MEDS: VASOPRESSIN 20 UNITS in SODIUM CHL 0.9% 99 ML IV SCH ×3 (00:20→22:34)
[2023-02-24] MEDS: ALBUTEROL SULF 2.5 MG/0.5ML(0.5%) NEB SOLN NEB SCH ×6 (02:32→22:15)
[2023-02-24] MEDS: IPRATROPIUM BROM 0.5 MG/2.5ML INH SOL NEB SCH ×6 (02:32→22:15)
[2023-02-24 03:56] LABS: Albumin 1.9 g/dL (3.4-5.0); Calcium 8.7 mg/dL (8.5-10.1); Magnesium 1.8 mg/dL (1.6-2.6); Potassium 3.4 mmol/L (3.5-5.1)
[2023-02-24 03:58] LABS: BUN/Creatinine Ratio 32.6 (10.0-20.0)
[2023-02-24 04:00] LABS: Bilirubin, Total 2.9 mg/dL (0.2-1.0); Phosphorus 4.6 mg/dL (2.5-4.90); Total Protein 7.6 g/dL (6.4-8.2)
[2023-02-24] MEDS: FUROSEMIDE 100 MG/10ML VIAL IV SCH ×2 (05:30→18:06)
[2023-02-24] MEDS: ACCU-CHEK COMFORT CURVE STRIP VI SCH ×4 (05:31→18:00)
[2023-02-24] MEDS: InsuLIN REG 1unit/0.01ml Soln (100units/ml) SC SCH ×4 (05:38→18:01)
[2023-02-24 08:05] LABS: Hematocrit 25.3 % (36.0-46.0); Mean Corpuscular Hemoglobin 24.5 pg (28.0-32.0); Mean Corpuscular Hgb Conc. 31.6 g/dL (32.0-36.0); Mean Corpuscular Volume 77.5 fL (80.0-100.0); Red Blood Cells 3.26 10^6/uL (4.0-5.20); Red Cell Distribution Width 19.9 % (11.8-14.3); White Blood Cell 13.7 10^3/uL (4.4-10.8)
[2023-02-24 08:15] LABS: Basophils % (manual) 0 (0.0-2.0); Blast Cells 0; Metamyelocytes % 0; Myelocytes % 0; Promyelocytes % 0; Reactive Lymphocytes 0
[2023-02-24] MEDS: APIXABAN 2.5 MG TAB PO SCH ×2 (09:50→21:57)
[2023-02-24] MEDS: PANTOPRAZOLE 40 MG/10 ML VIAL INJ IV SCH (09:50)
[2023-02-24] MEDS: ASPirin 81 mg TAB PO SCH (09:51)
[2023-02-24] MEDS: SODIUM CHLORIDE 0.9% 1,000 ML IV SCH (09:51)
[2023-02-24] MEDS ORDERED: POTASSIUM CHL 20MEQ/100ML 100 ML IV ONE (10:00)
[2023-02-24 12:58] LABS: Band Neutrophils % (manual) 7; Eosinophils % (manual) 3 (0-7); Lymphocytes % (manual) 13 (10.0-50.0); Monocytes % (manual) 8 (0-12)
[2023-02-24] MEDS: DOPamine 1600MCG/ML D5W 250 ML IV SCH (16:30)
[2023-02-24] MEDS: MIDAZOLAM DRIP 50 mg/50mL 50 ML IV SCH (16:30)
[2023-02-24] MEDS: NOREPINEPHRINE BITARTRATE 32 MG in SODIUM CHL 0.9% 218 ML IV SCH (17:00)
[2023-02-24] MEDS: PHENYLEPHRINE INJ 80 MG in SODIUM CHL 0.9% 242 ML IV SCH (17:00)
[2023-02-24] MEDS: PROPOFOL 100 ML IV SCH (17:15)
[2023-02-24] MEDS: TPN PER PHARMACY IV NR ×9 (19:59)
[2023-02-24] MEDS ORDERED: TPN PER PHARMACY IV NR ×8 (20:00)
[2023-02-24] MEDS: ATORVASTATIN 20 MG TAB PO SCH (21:56)
[2023-02-25] VITALS (53 sets, daily range): BP systolic 122–187; BP diastolic 37–69
[2023-02-25] MEDS: IPRATROPIUM BROM 0.5 MG/2.5ML INH SOL NEB SCH ×6 (02:13→22:00)
[2023-02-25] MEDS: ALBUTEROL SULF 2.5 MG/0.5ML(0.5%) NEB SOLN NEB SCH ×6 (02:13→21:59)
[2023-02-25] MEDS: ACCU-CHEK COMFORT CURVE STRIP VI SCH ×5 (02:33→23:55)
[2023-02-25] MEDS: SODIUM CHLORIDE 0.9% 1,000 ML IV SCH (02:33)
[2023-02-25 04:13] LABS: Hemoglobin 8.1 g/dL (12.2-16.2)
[2023-02-25 04:15] LABS: Hematocrit 24.9 % (36.0-46.0); Mean Corpuscular Hemoglobin 25.2 pg (28.0-32.0); Mean Corpuscular Hgb Conc. 32.6 g/dL (32.0-36.0); Mean Corpuscular Volume 77.2 fL (80.0-100.0); Red Blood Cells 3.23 10^6/uL (4.0-5.20)
[2023-02-25 04:17] LABS: Basophils % (manual) 0 (0.0-2.0); Blast Cells 0; Metamyelocytes % 0; Promyelocytes % 0; Reactive Lymphocytes 0; Red Cell Distribution Width 20.2 % (11.8-14.3)
[2023-02-25 04:25] LABS: Potassium 3.5 mmol/L (3.5-5.1)
[2023-02-25 04:30] LABS: Albumin 1.9 g/dL (3.4-5.0); BUN/Creatinine Ratio 35.3 (10.0-20.0); Calcium 8.4 mg/dL (8.5-10.1)
[2023-02-25 04:32] LABS: Phosphorus 4.2 mg/dL (2.5-4.90)
[2023-02-25] MEDS: FUROSEMIDE 100 MG/10ML VIAL IV SCH ×2 (05:54→18:16)
[2023-02-25] MEDS: InsuLIN REG 1unit/0.01ml Soln (100units/ml) SC SCH ×5 (05:55→23:56)
[2023-02-25 06:55] LABS: Band Neutrophils % (manual) 1; Eosinophils % (manual) 2 (0-7); Lymphocytes % (manual) 8 (10.0-50.0); Monocytes % (manual) 7 (0-12); Myelocytes % 2
[2023-02-25] MEDS: VASOPRESSIN 20 UNITS in SODIUM CHL 0.9% 99 ML IV SCH ×2 (09:41→20:48)
[2023-02-25] MEDS: APIXABAN 2.5 MG TAB PO SCH ×2 (10:00→23:43)
[2023-02-25] MEDS: ASPirin 81 mg TAB PO SCH (10:00)
[2023-02-25] MEDS: PANTOPRAZOLE 40 MG/10 ML VIAL INJ IV SCH (10:07)
[2023-02-25] MEDS: hydrALAZINE HCL 20 MG/ML VL IV PRN (10:07)
[2023-02-25] MEDS: MORPHINE SULFATE INJ 2 MG/ml SYRG IV PRN (11:41)
[2023-02-25] MEDS: DOPamine 1600MCG/ML D5W 250 ML IV SCH (16:30)
[2023-02-25] MEDS: MIDAZOLAM DRIP 50 mg/50mL 50 ML IV SCH (16:30)
[2023-02-25] MEDS: NOREPINEPHRINE BITARTRATE 32 MG in SODIUM CHL 0.9% 218 ML IV SCH (17:00)
[2023-02-25] MEDS: PHENYLEPHRINE INJ 80 MG in SODIUM CHL 0.9% 242 ML IV SCH (17:00)
[2023-02-25] MEDS: PROPOFOL 100 ML IV SCH (17:15)
[2023-02-25 17:43] LABS: Urine Bacteria FEW /hpf (None Seen); Urine Blood 1+ /uL (Negative); Urine Specific Gravity 1.009 (1.001-1.035); Urine WBC 19 /hpf (0 - 5)
[2023-02-25] MEDS ORDERED: TPN PER PHARMACY IV NR ×10 (20:00)
[2023-02-25] MEDS: ATORVASTATIN 20 MG TAB PO SCH (23:43)
[2023-02-26] VITALS (49 sets, daily range): BP systolic 127–182; BP diastolic 36–69
[2023-02-26] MEDS: hydrALAZINE HCL 20 MG/ML VL IV PRN ×3 (01:08→16:27)
[2023-02-26] MEDS: IPRATROPIUM BROM 0.5 MG/2.5ML INH SOL NEB SCH ×7 (02:00→21:29)
[2023-02-26] MEDS: ALBUTEROL SULF 2.5 MG/0.5ML(0.5%) NEB SOLN NEB SCH ×6 (02:00→21:29)
[2023-02-26 04:21] LABS: Hematocrit 26.4 % (36.0-46.0); Red Blood Cells 3.46 10^6/uL (4.0-5.20)
[2023-02-26 04:25] LABS: Hemoglobin 8.6 g/dL (12.2-16.2); Mean Corpuscular Hemoglobin 24.9 pg (28.0-32.0); Mean Corpuscular Hgb Conc. 32.6 g/dL (32.0-36.0); Mean Corpuscular Volume 76.4 fL (80.0-100.0); White Blood Cell 17.6 10^3/uL (4.4-10.8)
[2023-02-26 04:32] LABS: Red Cell Distribution Width 20.9 % (11.8-14.3)
[2023-02-26 04:34] LABS: Basophils % (manual) 0 (0.0-2.0); Blast Cells 0; Eosinophils % (manual) 0 (0-7); Metamyelocytes % 0; Myelocytes % 0; Promyelocytes % 0; Reactive Lymphocytes 0
[2023-02-26 04:46] LABS: Potassium 3.5 mmol/L (3.5-5.1)
[2023-02-26 04:53] LABS: Albumin 2.2 g/dL (3.4-5.0); BUN/Creatinine Ratio 38.8 (10.0-20.0); Bilirubin, Total 3.5 mg/dL (0.2-1.0); Calcium 8.9 mg/dL (8.5-10.1); Magnesium 2.4 mg/dL (1.6-2.6); Phosphorus 3.4 mg/dL (2.5-4.90); Total Protein 8.4 g/dL (6.4-8.2)
[2023-02-26] MEDS: FUROSEMIDE 100 MG/10ML VIAL IV SCH (06:03)
[2023-02-26] MEDS: ACCU-CHEK COMFORT CURVE STRIP VI SCH ×4 (06:03→23:02)
[2023-02-26] MEDS: InsuLIN REG 1unit/0.01ml Soln (100units/ml) SC SCH ×4 (06:05→23:08)
[2023-02-26] MEDS: VASOPRESSIN 20 UNITS in SODIUM CHL 0.9% 99 ML IV SCH ×2 (07:55→19:02)
[2023-02-26] MEDS: PANTOPRAZOLE 40 MG/10 ML VIAL INJ IV SCH (08:36)
[2023-02-26] MEDS: ASPirin 81 mg TAB PO SCH (10:00)
[2023-02-26] MEDS: APIXABAN 2.5 MG TAB PO SCH ×2 (10:00→22:00)
[2023-02-26 11:02] LABS: Band Neutrophils % (manual) 3; Lymphocytes % (manual) 11 (10.0-50.0); Monocytes % (manual) 3 (0-12)
[2023-02-26] MEDS ORDERED: VANCOMYCIN PER PHARMACY 0 MG IV SCH (14:45)
[2023-02-26] MEDS ORDERED: VANCOMYCIN 1GM/250ML 250 ML IV ONE (15:30)
[2023-02-26] MEDS ORDERED: ALBUMIN 25% 100 ML IV ONE (16:00)
[2023-02-26] MEDS: PROPOFOL 100 ML IV SCH (16:11)
[2023-02-26] MEDS: MIDAZOLAM DRIP 50 mg/50mL 50 ML IV SCH (16:11)
[2023-02-26] MEDS: PHENYLEPHRINE INJ 80 MG in SODIUM CHL 0.9% 242 ML IV SCH (16:11)
[2023-02-26] MEDS: DOPamine 1600MCG/ML D5W 250 ML IV SCH (16:11)
[2023-02-26] MEDS: NOREPINEPHRINE BITARTRATE 32 MG in SODIUM CHL 0.9% 218 ML IV SCH (16:11)
[2023-02-26] MEDS ORDERED: FUROSEMIDE 100 MG/10ML VIAL IV ONE (18:30)
[2023-02-26] MEDS: PIPERACILLIN-TAZOB 3.375GM 100 ML IV SCH (18:44)
[2023-02-26] MEDS ORDERED: TPN PER PHARMACY IV NR ×9 (20:00)
[2023-02-26] MEDS: ATORVASTATIN 20 MG TAB PO SCH (22:53)
[2023-02-26] MEDS: MORPHINE SULFATE INJ 2 MG/ml SYRG IV PRN (23:43)
[2023-02-27] VITALS (89 sets, daily range): BP systolic 115–170; BP diastolic 24–103
[2023-02-27] MEDS: IPRATROPIUM BROM 0.5 MG/2.5ML INH SOL NEB SCH ×9 (02:22→22:24)
[2023-02-27] MEDS: ALBUTEROL SULF 2.5 MG/0.5ML(0.5%) NEB SOLN NEB SCH ×6 (02:22→22:23)
[2023-02-27 04:19] LABS: Albumin 2.5 g/dL (3.4-5.0); Calcium 9.3 mg/dL (8.5-10.1); Magnesium 2.2 mg/dL (1.6-2.6); Potassium 3.5 mmol/L (3.5-5.1)
[2023-02-27 04:23] LABS: BUN/Creatinine Ratio 42.5 (10.0-20.0); Bilirubin, Total 3.6 mg/dL (0.2-1.0); Phosphorus 3.2 mg/dL (2.5-4.90); Total Protein 8.2 g/dL (6.4-8.2)
[2023-02-27] MEDS: VASOPRESSIN 20 UNITS in SODIUM CHL 0.9% 99 ML IV SCH ×2 (06:09→17:16)
[2023-02-27] MEDS: PIPERACILLIN-TAZOB 3.375GM 100 ML IV SCH ×2 (06:27→17:38)
[2023-02-27] MEDS: ACCU-CHEK COMFORT CURVE STRIP VI SCH ×4 (06:27→23:46)
[2023-02-27] MEDS: InsuLIN REG 1unit/0.01ml Soln (100units/ml) SC SCH ×4 (06:28→23:49)
[2023-02-27 10:41] LABS: Basophils # (auto) 0.3 10 ^3/uL (0-0.2); Hemoglobin 8.9 g/dL (12.2-16.2); Neutrophils # (auto) 24.4 10 ^3/uL (1.6-8.6)
[2023-02-27 10:43] LABS: Eosinophils # (auto) 0.2 10 ^3/uL (0-0.8); Eosinophils % (auto) 0.6 % (0.0-7.0); Hematocrit 27.7 % (36.0-46.0); Lymphocytes % (auto) 3.8 % (10.0-50.0); Mean Corpuscular Hemoglobin 24.9 pg (28.0-32.0); Mean Corpuscular Hgb Conc. 32.2 g/dL (32.0-36.0); Mean Corpuscular Volume 77.3 fL (80.0-100.0); Monocytes % (auto) 3.5 % (0.0-12.0); Neutrophils % (auto) 91.1 % (37.0-80.0); Red Blood Cells 3.58 10^6/uL (4.0-5.20); White Blood Cell 26.8 10^3/uL (4.4-10.8)
[2023-02-27] MEDS: ASPirin 81 mg TAB PO SCH (10:50)
[2023-02-27] MEDS: FUROSEMIDE 100 MG/10ML VIAL IV SCH (10:50)
[2023-02-27] MEDS: APIXABAN 2.5 MG TAB PO SCH ×2 (10:50→22:28)
[2023-02-27] MEDS: PANTOPRAZOLE 40 MG/10 ML VIAL INJ IV SCH (10:50)
[2023-02-27 10:58] LABS: Albumin 2.5 g/dL (3.4-5.0); Calcium 9.3 mg/dL (8.5-10.1); Potassium 3.6 mmol/L (3.5-5.1)
[2023-02-27 11:00] LABS: Red Cell Distribution Width 20.4 % (11.8-14.3)
[2023-02-27 11:04] LABS: BUN/Creatinine Ratio 40.3 (10.0-20.0); Bilirubin, Total 3.4 mg/dL (0.2-1.0); Total Protein 8.2 g/dL (6.4-8.2)
[2023-02-27] MEDS ORDERED: VANCOMYCIN 500 MG in D5W 5% 100 ML IV ONE (16:00)
[2023-02-27] MEDS: DOPamine 1600MCG/ML D5W 250 ML IV SCH (16:30)
[2023-02-27] MEDS: MIDAZOLAM DRIP 50 mg/50mL 50 ML IV SCH (16:30)
[2023-02-27] MEDS: hydrALAZINE HCL 20 MG/ML VL IV PRN ×2 (17:00→22:33)
[2023-02-27] MEDS: PHENYLEPHRINE INJ 80 MG in SODIUM CHL 0.9% 242 ML IV SCH (17:00)
[2023-02-27] MEDS: NOREPINEPHRINE BITARTRATE 32 MG in SODIUM CHL 0.9% 218 ML IV SCH (17:00)
[2023-02-27] MEDS ORDERED: TPN PER PHARMACY IV NR ×8 (20:00)
[2023-02-27] MEDS: LORazepam 0.5 MG TAB PO PRN (20:34)
[2023-02-27] MEDS: ATORVASTATIN 20 MG TAB PO SCH (22:28)
[2023-02-28] VITALS (48 sets, daily range): BP systolic 104–199; BP diastolic 36–162
[2023-02-28] MEDS: ALBUTEROL SULF 2.5 MG/0.5ML(0.5%) NEB SOLN NEB SCH ×4 (02:29→14:03)
[2023-02-28] MEDS: IPRATROPIUM BROM 0.5 MG/2.5ML INH SOL NEB SCH ×4 (02:30→14:03)
[2023-02-28] MEDS: VASOPRESSIN 20 UNITS in SODIUM CHL 0.9% 99 ML IV SCH ×2 (04:23→15:30)
[2023-02-28 05:01] LABS: Hematocrit 27.6 % (36.0-46.0); Mean Corpuscular Hemoglobin 25.3 pg (28.0-32.0); Mean Corpuscular Hgb Conc. 32.4 g/dL (32.0-36.0); Mean Corpuscular Volume 77.9 fL (80.0-100.0); Red Blood Cells 3.55 10^6/uL (4.0-5.20); White Blood Cell 27.3 10^3/uL (4.4-10.8)
[2023-02-28 05:15] LABS: Red Cell Distribution Width 21.6 % (11.8-14.3)
[2023-02-28 05:16] LABS: Basophils % (manual) 0 (0.0-2.0); Blast Cells 0; Metamyelocytes % 0; Monocytes % (manual) 0 (0-12); Promyelocytes % 0; Reactive Lymphocytes 0
[2023-02-28 05:17] LABS: Albumin 2.4 g/dL (3.4-5.0); Calcium 9.3 mg/dL (8.5-10.1); Magnesium 2.2 mg/dL (1.6-2.6); Potassium 3.5 mmol/L (3.5-5.1)
[2023-02-28 05:22] LABS: BUN/Creatinine Ratio 46.8 (10.0-20.0); Bilirubin, Total 3.6 mg/dL (0.2-1.0); Phosphorus 3.2 mg/dL (2.5-4.90); Total Protein 8.2 g/dL (6.4-8.2)
[2023-02-28] MEDS: PIPERACILLIN-TAZOB 3.375GM 100 ML IV SCH ×2 (05:37→17:39)
[2023-02-28] MEDS: ACCU-CHEK COMFORT CURVE STRIP VI SCH ×3 (05:37→17:39)
[2023-02-28] MEDS: InsuLIN REG 1unit/0.01ml Soln (100units/ml) SC SCH ×3 (05:39→17:29)
[2023-02-28 08:20] LABS: Band Neutrophils % (manual) 1; Eosinophils % (manual) 3 (0-7); Lymphocytes % (manual) 5 (10.0-50.0); Myelocytes % 1
[2023-02-28] MEDS: APIXABAN 2.5 MG TAB PO SCH (09:36)
[2023-02-28] MEDS: ASPirin 81 mg TAB PO SCH (09:36)
[2023-02-28] MEDS: FUROSEMIDE 100 MG/10ML VIAL IV SCH (09:36)
[2023-02-28] MEDS: PANTOPRAZOLE 40 MG/10 ML VIAL INJ IV SCH (09:37)
[2023-02-28] MEDS: DOPamine 1600MCG/ML D5W 250 ML IV SCH (16:30)
[2023-02-28] MEDS: MIDAZOLAM DRIP 50 mg/50mL 50 ML IV SCH (16:30)
[2023-02-28] MEDS: NOREPINEPHRINE BITARTRATE 32 MG in SODIUM CHL 0.9% 218 ML IV SCH (17:00)
[2023-02-28] MEDS: PHENYLEPHRINE INJ 80 MG in SODIUM CHL 0.9% 242 ML IV SCH (17:00)
[2023-02-28] MEDS ORDERED: TPN PER PHARMACY IV NR ×8 (20:00)
== END 2023-02-28 18:53 | DRG 870 ==
LOC: ER 14:31 → TELE 21:58 → ICU WEST 02-05 17:46
PROVIDERS: ADMIT Internal Medicine; ATTEND Internal Medicine
PROC: 5A1955Z Respiratory Ventilation, Greater than 96 Consecutive Hours (ICD-10-PCS; principal; 2023-02-05)
PROC: 06HY33Z Insertion of Infusion Device into Lower Vein, Percutaneous Approach (ICD-10-PCS; 2023-02-05)
PROC: 0BH17EZ Insertion of Endotracheal Airway into Trachea, Via Natural or Artificial Opening (ICD-10-PCS; 2023-02-05)
PROC: 02H633Z Insertion of Infusion Device into Right Atrium, Percutaneous Approach (ICD-10-PCS; 2023-02-07)
PROC: B548ZZA Ultrasonography of Superior Vena Cava, Guidance (ICD-10-PCS; 2023-02-07)
PROC: 02H633Z Insertion of Infusion Device into Right Atrium, Percutaneous Approach (ICD-10-PCS; 2023-02-07)
PROC: B548ZZA Ultrasonography of Superior Vena Cava, Guidance (ICD-10-PCS; 2023-02-07)
PROC: 5A12012 Performance of Cardiac Output, Single, Manual (ICD-10-PCS; 2023-02-07)
PROC: 5A2204Z Restoration of Cardiac Rhythm, Single (ICD-10-PCS; 2023-02-07)
PROC: 5A1D70Z Performance of Urinary Filtration, Intermittent, Less than 6 Hours Per Day (ICD-10-PCS; 2023-02-08)
PROC: 30233R1 Transfusion of Nonautologous Platelets into Peripheral Vein, Percutaneous Approach (ICD-10-PCS; 2023-02-09)
PROC: 5A1D70Z Performance of Urinary Filtration, Intermittent, Less than 6 Hours Per Day (ICD-10-PCS; 2023-02-11)
PROC: 5A1D70Z Performance of Urinary Filtration, Intermittent, Less than 6 Hours Per Day (ICD-10-PCS; 2023-02-14)
PROC: 5A1D70Z Performance of Urinary Filtration, Intermittent, Less than 6 Hours Per Day (ICD-10-PCS; 2023-02-15)
PROC: 5A1D70Z Performance of Urinary Filtration, Intermittent, Less than 6 Hours Per Day (ICD-10-PCS; 2023-02-18)
PROC: 5A1D70Z Performance of Urinary Filtration, Intermittent, Less than 6 Hours Per Day (ICD-10-PCS; 2023-02-19)
PROC: 5A1D70Z Performance of Urinary Filtration, Intermittent, Less than 6 Hours Per Day (ICD-10-PCS; 2023-02-21)
PROC: 5A09457 Assistance with Respiratory Ventilation, 24-96 Consecutive Hours, Continuous Positive Airway Pressure (ICD-10-PCS; 2023-02-27)
DX: A41.51 Sepsis due to Escherichia coli [E. coli] (principal); G92.8 Other toxic encephalopathy; I50.43 Acute on chronic combined systolic (congestive) and diastolic (congestive) heart failure; J18.9 Pneumonia, unspecified organism; J96.01 Acute respiratory failure with hypoxia; R65.21 Severe sepsis with septic shock; I46.9 Cardiac arrest, cause unspecified; R57.0 Cardiogenic shock; N17.0 Acute kidney failure with tubular necrosis; I63.9 Cerebral infarction, unspecified; E87.20 Acidosis, unspecified; I31.39 Other pericardial effusion (noninflammatory); N13.6 Pyonephrosis; I48.20 Chronic atrial fibrillation, unspecified; Z16.12 Extended spectrum beta lactamase (ESBL) resistance; E11.52 Type 2 diabetes mellitus with diabetic peripheral angiopathy with gangrene; G93.1 Anoxic brain damage, not elsewhere classified; I13.0 Hypertensive heart and chronic kidney disease with heart failure and stage 1 through stage 4 chronic kidney disease, or unspecified chronic kidney disease; Z20.822 Contact with and (suspected) exposure to COVID-19; I25.10 Atherosclerotic heart disease of native coronary artery without angina pectoris; I95.9 Hypotension, unspecified; D69.6 Thrombocytopenia, unspecified; D64.9 Anemia, unspecified; I07.1 Rheumatic tricuspid insufficiency; E87.6 Hypokalemia; E11.22 Type 2 diabetes mellitus with diabetic chronic kidney disease; N18.31 Chronic kidney disease, stage 3a; Z83.3 Family history of diabetes mellitus; Z82.49 Family history of ischemic heart disease and other diseases of the circulatory system; Z79.899 Other long term (current) drug therapy; Z79.82 Long term (current) use of aspirin; Z86.718 Personal history of other venous thrombosis and embolism; I25.2 Old myocardial infarction
CPT/HCPCS: 36415; 36600; 70450; 70551; 71045; 71260; 74177; 76604; 76775; 80048; 80053; 80074; 80202; 81001; 82248; 82570; 82728; 82805; 82962; 83010; 83540; 83550; 83605; 83615; 83735; 83880; 84100; 84156; 84300; 84478; 84484; 85007; 85025; 85027; 85379; 85384; 85610; 85730; 86703; 86850; 86880; 86900; 86901; 87040; 87070; 87077; 87081; 87086; 87088; 87186; 87205; 87426; 90935; 92950; 93005; 93306; 93886; 93970; 93971; 94003; 94640; 94660; 95819; 99291; C9113; G0378; J0330; J0712; J1642; J1815; J1956; J2250; J2405; J2543; J2704; J3480; J7060; J7131; P9047